=== PATIENT | male | born 1945 | race Caucasian/White ===

== ENCOUNTER → 2017-11-27 | Outpatient (CLI) | payer OTHER ==
[~2017-11-27] MED LIST: ASPI325T45 PO; B-CO1CAP17 PO; BIOT7500 PEG; CYAN10005 PO; DILT-113 PO; GEMF600T3 PO; GLUCTAB18 PO; PIRO-104 PO; PYRI100T4 PO; TRAM-10 PO; VITACAP37 PO
== END | disposition home or self-care (01) ==
LOC: C.CTS 14:29
PROVIDERS: ATTEND Orthopaedic Surgery
DX: M19.011 Primary osteoarthritis, right shoulder (principal)

== ENCOUNTER 2017-12-28 08:40 | Inpatient (IN) | payer OTHER ==
[2017-11-27 13:03] VITALS: BMI 32.0
--- NOTE | 2017-11-27 13:42 | PAT Medication Instructions ---
Service Date Nov 27, 2017. Current Home Medication List Aspirin (Aspirin), 325 MG PO QAM Biotin (Biotin), 1 TAB PEG QAM Cyanocobalamin (Vitamin B-12), 1,000 MCG PO QAM Diltiazem Hcl Ext Rel (Tiazac), 180 MG PO QAM Gemfibrozil (Lopid), 1 TAB PO BID Glucosamine-Chondroitin (Osteo Bi-Flex Regular Str), 1 TAB PO BID Piroxicam (Piroxicam), 1 CAP PO QPM Pyridoxine (Vitamin B6), 100-300 MG PO QAM Tramadol (Ultram), 1 TAB PO TID PRN for Pain or Fever Vitamin B Cmplx/Vitc/Folic Ac (Nephrocaps), 1 CAP PO QAM Vitamin E (E-400), 1 CAP PO QAM Medication Instructions For Your Scheduled Surgery - Check with surgeon and prescribing physician for instructions: Aspirin (Aspirin), 325 MG PO QAM Piroxicam (Piroxicam), 1 CAP PO QPM - Hold the following medications 2 weeks prior to surgery: Vitamin E (E-400), 1 CAP PO QAM Glucosamine-Chondroitin (Osteo Bi-Flex Regular Str), 1 TAB PO BID - Hold the following medications 24 hours prior to surgery: Gemfibrozil (Lopid), 1 TAB PO BID - Hold the following medications the morning of surgery: Biotin (Biotin), 1 TAB PEG QAM Cyanocobalamin (Vitamin B-12), 1,000 MCG PO QAM Pyridoxine (Vitamin B6), 100-300 MG PO QAM Vitamin B Cmplx/Vitc/Folic Ac (Nephrocaps), 1 CAP PO QAM - Take the following medications the morning of surgery with a sip of water: Tramadol (Ultram), 1 TAB PO TID PRN for Pain or Fever (okay to take up to 4 hours prior to surgery if needed) Diltiazem Hcl Ext Rel (Tiazac), 180 MG PO QAM - Take the following medications as scheduled the night before surgery: Tramadol (Ultram), 1 TAB PO TID PRN for Pain or Fever (if needed) If you have any questions please call us at [phone] or [phone] or [phone]
--- NOTE | 2017-11-27 14:26 | DIAGNOSTIC IMAGING REPORT ---
CHEST 2 VIEWS ROUTINE CLINICAL HISTORY: Preoperative evaluation. COMPARISON STUDY: No previous studies for comparison. FINDINGS: Lung volumes are normal. There is no pneumothorax or pleural effusion. No consolidation is identified and there is no evidence for pulmonary edema. Cardiac size is within normal limits. IMPRESSION: No acute cardiopulmonary findings. Electronically signed by: Kip López M.D. 11/27/2017 2:25 PM Dictated Date/Time: 11/27/2017 2:23 PM
[2017-11-27 14:33] LABS: BASO % 0.3 %; BASO ABS # 0.02 K/uL (0-0.2); EOS ABS # 0.21 K/uL (0-0.5); HEMATOCRIT 45.3 % (42-52); HEMOGLOBIN 16.6 g/dL (14.0-18.0); IG# 0.01 K/uL (0.00-0.02); LYMPH ABS # 2.11 K/uL (1.2-3.4); MEAN CORPUSCULAR HEMOGLOBIN 30.8 pg (25-34); MEAN CORPUSCULAR HGB CONC 36.6 g/dl (32-36); MEAN PLATELET VOLUME 8.5 fL (7.4-10.4); MONO ABS # 0.49 K/uL (0.11-0.59); NEUT % 59.6 %; NEUT ABS # 4.19 K/uL (1.4-6.5); PLATELET COUNT 199 K/uL (130-400); RED CELL DISTRIBUTION WIDTH CV 12.4 % (11.5-14.5); RED CELL DISTRIBUTION WIDTH SD 37.6 fL (36.4-46.3); WHITE BLOOD COUNT 7.03 K/uL (4.8-10.8)
[2017-11-27 14:42] LABS: PTT PATIENT 24.1 SECONDS (21.0-31.0)
[2017-11-27 16:05] LABS: CREATININE 0.97 mg/dl (0.60-1.40)
--- NOTE | 2017-12-27 16:08 | HISTORY & PHYSICAL EXAMINATION ---
DATE OF ADMISSION: 12/28/2017 PREOPERATIVE DIAGNOSIS: Advanced osteoarthritis of the right shoulder. 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 He has been dealing with right shoulder pain for the last 6-7 years. X-rays and clinical examination were diagnostic for primary osteoarthritis of his shoulders. After failing extensive conservative treatment including injections, he elected to proceed with a right total shoulder arthroplasty. PAST MEDICAL HISTORY: Significant for hypertension, osteoarthritis, and GERD. MEDICATIONS: Include diltiazem, gemfibrozil, piroxicam, tramadol, aspirin, and multiple vitamins and minerals. ALLERGIES: None. PAST SURGICAL HISTORY: Denies. SOCIAL HISTORY: He has about 3 drinks per week and does not smoke. He remains active. FAMILY HISTORY: Significant for heart disease, diabetes and colon cancer. REVIEW OF SYSTEMS: He complains of right shoulder pain. All other pertinent review of systems is negative. PHYSICAL EXAMINATION: GENERAL: He is awake, alert and oriented x3. He is in no apparent distress. He is very pleasant. HEENT: Pupils equal, round, reactive to light. Extraocular motion is intact. Oral mucosa pink, moist. HEART: Regular rate per radial pulse. LUNGS: Becca symmetrically bilaterally with no audible breath sounds. ABDOMEN: Soft, nontender, nondistended. MUSCULOSKELETAL: On physical examination of the shoulder, he has decreased active range of motion with only 100 degrees of forward elevation, 100 degrees of abduction. He has 5/5 motion to full can test and external rotation. Negative bear hug and belly press test. Significant tenderness to palpation over the anterior glenohumeral joint line. No subacromial and no AC joint tenderness. IMAGING DATA: X-rays of the shoulder do show advanced osteoarthritis with inferior osteophyte formation, complete joint space collapse and wkbf-os-[id number] articulation. IMPRESSION: Advanced osteoarthritis of the right shoulder. PLAN: We will proceed with a Biomet comprehensive right total shoulder arthroplasty. Postoperatively, he will be placed in an arm sling and kept overnight for postoperative medical management.
[~2017-12-28] VITALS: Ht 172.7 cm; Wt 94.9 kg
[2017-12-28] VITALS (7 sets, daily range): BP systolic 127–177; BP diastolic 70–111; PULSE 66–76; TEMP 36.3–36.5; O2SAT 92–96; Ht 172.7 cm; Wt 94.9 kg
[2017-12-28] MEDS: TRANEXAMIC ACID INJ 1,000 MG x 2 Bags IV SCH ×4 (06:30→09:51)
--- NOTE | 2017-12-28 08:37 | History & Physical Bridge Note ---
H&P Re-Evaluation Bridge Note: I have examined the patient, reviewed the History & Physical and in the interval since the performance of the History & Physical I have noted the following changes of clinical significance: No changes noted
[~2017-12-28 08:40] MED LIST changes: +ACETAMINOPHEN 500 MG TAB PO SCH; +BUPIVACAINE 0.25% 30 ML VIAL ONE; +CEFAZOLIN 2000MG IV PUSH 15 ML IV SCH; +DEXAMETHASONE SOD INJ 4 MG/ML VIAL ONE; +EpINEphrine INJ 1MG/ML AMP 1 MG/ML AMP ONE; +FAMOTIDINE 20 MG TAB PO SCH; +GABAPENTIN 300 MG CAP PO SCH; +LACTATED RINGER'S 1000ML 1,000 ML IV SCH; +LACTATED RINGER'S 1000ML IV SCH; +ROPIVACAINE 0.5% 5 MG/ML 30 ML VIAL ONE; +ROPIVACAINE 5MG/ML 30 ML 150 MG, BUPIVACAINE 0.5% MPF INJ 30 ML, EpINEphrine HCL INJ 0.... INFIL SCH
[2017-12-28] MEDS ORDERED: ONDANSETRON INJ 2 MG/ML 2 ML VIAL IV PRN ×2 (09:00→12:00)
[2017-12-28] MEDS ORDERED: EpHEDrine SULFATE INJ 50 MG/ML AMP IV PRN (09:00)
[2017-12-28] MEDS ORDERED: ATROPINE SULFATE 0.1 MG/ML 5ML SYR IV PRN (09:00)
[2017-12-28] MEDS ORDERED: PROMETHAZINE HCL INJ 6.25 MG in SODIUM CHLORIDE 0.9% 50ML 50 ML IV PRN (09:00)
[2017-12-28] MEDS ORDERED: FENTANYL CITRATE INJ 50 MCG/1 ML 2 ML VIAL IV PRN (09:00)
[2017-12-28] MEDS ORDERED: ORTHO JOINT ANESTHETIC ONE (09:35)
[2017-12-28] MEDS ORDERED: BACITRACIN 50000 UNIT VIAL ONE (09:35)
[2017-12-28] MEDS ORDERED: ONDANSETRON INJ 2 MG/ML 2 ML VIAL ONE (09:39)
[2017-12-28] MEDS ORDERED: LIDOCAINE HCL 2% 2 ML VIAL (20MG/ML) ONE (09:39)
[2017-12-28] MEDS ORDERED: DEXAMETHASONE SOD INJ 4 MG/ML VIAL ONE (09:39)
[2017-12-28] MEDS ORDERED: NEOSTIGMINE METHYLSULFATE 5 MG/5 ML SYR ONE (09:39)
[2017-12-28] MEDS ORDERED: PROPOFOL IV EMULSION 10 MG/ML 20 ML VIAL IV ONE (09:39)
[2017-12-28] MEDS ORDERED: GLYCOPYRROLATE INJ 0.2 MG/ML VIAL ONE (09:39)
[2017-12-28] MEDS ORDERED: MIDAZOLAM HCL 1 MG/ML 2ML VIAL ONE ×2 (09:40)
[2017-12-28] MEDS ORDERED: FENTANYL CITRATE INJ 50 MCG/1 ML 2 ML VIAL ONE ×2 (09:40→10:48)
[2017-12-28] MEDS ORDERED: ROCURONIUM BROMIDE 10 MG/ML 5 ML VIAL IV ONE ×2 (10:58→11:38)
[2017-12-28] MEDS ORDERED: PHENYLEPHRINE HCL INJ 10 MG/ML VIAL ONE (11:39)
--- NOTE | 2017-12-28 11:52 | [facility] Post Operative Brief Note ---
Immediate Operative Summary Operative Date Dec 28, 2017. Pre-Operative Diagnosis Advanced Osteoarthritis Right Shoulder Post-Operative Diagnosis Advanced Osteoarthritis Right Shoulder Procedure(s) Performed Right Total Shoulder Arthroplasty Surgeon Dr. Bong Aponte Pen Or Pencil Assembly Machine Operator Surgeon(s) Wagner Silva PA-C Estimated Blood Loss 200ML Findings Consistent with Post-Op Diagnosis Specimens Permanent Solution: A.) Right Humeral Head Anesthesia Type General Regional Complication(s) none Disposition Disposition: Recovery Room / PACU
[2017-12-28] MEDS ORDERED: CEFAZOLIN IV 2,000 MG in DEXTROSE 5% 50ML 50 ML IV SCH (12:00)
[2017-12-28] MEDS ORDERED: MoRPHine SULFATE 2 MG/ML CARP IV PRN (12:00)
[2017-12-28] MEDS ORDERED: HYDROCODONE/ACETAMIN 5/325MG TAB PO PRN (12:00)
[2017-12-28] MEDS ORDERED: SOD PHOSPHATE/SOD BIPHOSPHATE ENEMA 132 ML BTL PR PRN (12:00)
[2017-12-28] MEDS ORDERED: NALOXONE HCL 0.4 MG/1 ML VIAL/CARP IV PRN (12:00)
[2017-12-28] MEDS ORDERED: BISACODYL 10 MG SUPP PR PRN (12:00)
[2017-12-28] MEDS ORDERED: METOCLOPRAMIDE HCL INJ 5 MG/ML 2 ML VIAL IV PRN (12:00)
[2017-12-28] MEDS ORDERED: MAGNESIUM HYDROXIDE SUSP 30 ML UDC PO PRN (12:00)
--- NOTE | 2017-12-28 12:42 | Anesthesiology Progress Note ---
Anesthesia Post Op Note Date & Time Dec 28, 2017 at 12:42 Vital Signs Pain Intensity: 0 Vital Signs Past 12 Hours Date Time Temp Pulse Resp B/P (MAP) Pulse Ox O2 Delivery O2 Flow Rate FiO2 12/28/17 12:26 68 20 145/78 96 12/28/17 12:26 67 20 12/28/17 12:21 71 19 12/28/17 12:21 70 19 139/69 96 12/28/17 12:16 75 20 140/74 94 12/28/17 12:16 74 20 12/28/17 12:14 125/74 12/28/17 12:11 36.6 73 16 125/74 98 Oxymask 10 12/28/17 09:30 73 18 177/111 95 Room Air Notes Mental Status: alert / awake / arousable, participated in evaluation Pt Amnestic to Procedure: Yes Nausea / Vomiting: adequately controlled Pain: adequately controlled Airway Patency, RR, SpO2: stable & adequate BP & HR: stable & adequate Hydration State: stable & adequate Anesthetic Complications: no major complications apparent
--- NOTE | 2017-12-28 12:42 | DIAGNOSTIC IMAGING REPORT ---
R SHOULDER MIN 2 VIEWS ROUTINE CLINICAL HISTORY: Post shoulder surgery COMPARISON: CT of the right shoulder November 27, 2017. FINDINGS: Alignment of the right shoulder arthroplasty is anatomic. There is no fracture or unexpected radiopaque foreign body. Drain is in place. Skin henrry are noted. IMPRESSION: Expected findings following right shoulder arthroplasty. Electronically signed by: Kip López M.D. 12/28/2017 12:41 PM Dictated Date/Time: 12/28/2017 12:40 PM
--- NOTE | 2017-12-28 12:49 | OPERATIVE REPORT ---
DATE OF OPERATION: 12/28/2017 PREOPERATIVE DIAGNOSIS: Primary osteoarthritis of the right shoulder. POSTOPERATIVE DIAGNOSIS: Same. PROCEDURE: Right total shoulder arthroplasty. SURGEON: Dr. Bong Aponte. SENIOR INFORMATICA DEVELOPER: Wagner Silva PA-C, whose assistance was necessary for retraction and closure. ANESTHESIA: General with a right interscalene nerve block. COMPLICATIONS: None. CONDITION: Stable to PACU. IMPLANTS USED: I used a Biomet comprehensive right total shoulder arthroplasty system with a size medium glenoid, a size 13 mini pressfit humeral stem and a 46 x 18 mm eccentric humeral head. The glenoid was cemented with Palacos G cement. INDICATIONS: Joon is a pleasant 72-year-old male who presented to my office with chronic right shoulder pain. X-rays and clinical examination were diagnostic for primary osteoarthritis of the right shoulder. After failing conservative treatment, he elected to undergo a right total shoulder arthroplasty. DESCRIPTION OF PROCEDURE: On 12/28/2017, he arrived at [facility] for the above procedure. He was seen in the preoperative holding area and the operative extremity was identified and signed. He was given a preoperative antibiotic and a right interscalene nerve block. He was taken back to the operating room, laid on the table in supine position and put under general anesthesia. He was put into the beachchair position. The right shoulder was prepped and draped in sterile fashion. Time-out was done. The patient's operative extremity was properly identified. A deltopectoral approach was used. Dissection was taken down through the interval and the anterior shoulder was exposed. The long head of the biceps tendon was tenodesed to the upper border of the pec major. The subscapularis was then tenotomized off the lesser tuberosity with a centimeter of cuff tissue remaining. The proximal humerus was then exposed. Sequential reaming up to a size 13 reamer was done. Off the final reamer, a proximal humeral resection guide was placed and the proximal humerus was resected at 135 degrees of inclination and 30 degrees of retroversion. The head was removed and osteophytes were removed from the neck. The glenoid was then exposed. Time was spent doing an anterior and inferior capsular and labral release. The Biomet signature guide was then snapped on to the anterior aspect of the glenoid and a guide pin was placed in the total shoulder arthroplasty hole, set at 5 degrees of retroversion. A medium glenoid was reamed. The central boss was drilled. Three peripheral peg holes were drilled and the final glenoid was then cemented in place with Palacos-G cement. The proximal humerus was once again exposed. Sequential broaching up to size 13 broach was done. Off that final broach, a 46 x 18 mm eccentric head was trialled. The shoulder was brought through a full range of motion and felt to be stable. The proximal humerus was dislocated. The trials were removed. The final size 13 mini humeral stem was then impacted into place. A 46 x 18 mm eccentric humeral head was then impacted onto the humeral stem. The shoulder was reduced, brought through a full range of motion and felt to be stable. The subscapularis was then tenodesed back to the lesser tuberosity with transosseous FiberWire sutures and [id number] sutures. Two sutures were placed in the lateral rotator interval. Surrounding soft tissues were injected with 100 mL of an orthopedic pain control cocktail. The wound was irrigated with 3 liters normal saline solution with bacitracin. A single drain was placed. The axillary nerve was palpated. The skin was then closed with 2-0 Vicryl, 3-0 V-Loc suture and henrry. He was placed in a soft dressing and a regular arm sling. He was then extubated, transferred to a [facility] and taken to the postanesthesia care in stable condition. He tolerated the procedure well. I attest to the content of the Intraoperative Record and any orders documented therein. Any exceptions are noted below. BHARATI
[2017-12-28] MEDS: POTASSIUM CHLORIDE INJ 10 MEQ in SODIUM CHLORIDE 0.9% 1000ML 1,000 ML IV SCH (13:44)
[2017-12-28] MEDS ORDERED: IV FLUIDS COMPLETED PRN (14:00)
--- NOTE | 2017-12-28 16:26 | Discharge Instructions ---
Discharge Instructions Date of Service Dec 28, 2017. Admission Reason for Admission: Right Shoulder Degenerative Joint Disease Discharge Discharge Diagnosis / Problem: Right Total Shoulder Discharge Goals Goal(s): Decrease discomfort, Improve function Activity Recommendations Activity Limitations: as noted below . Instructions / Follow-Up Instructions / Follow-Up Activity and Therapy Recommendations: * Wear your sling for 3 weeks, unless otherwise instructed. You may remove your sling to shower and to dress, but otherwise, you should be in your sling at all times, including while sleeping * The shoulder replacement is very stable and you can use your hand while in the sling * Physical Therapy should start about 3-5 days from your day of surgery. Therapy will last about 8-12 weeks * You were shown a series of exercises in the hospital. Do these exercises daily including the exercises you were shown in physical therapy. Medications: * Narcotic You will likely be sent home from the hospital with a prescription for the narcotic pain medication that worked best throughout your stay. * Other medications may be prescribed for specific circumstances. If you have any questions, please call the office at . * Resume previous home medications unless otherwise instructed Showering: You may shower 5 days from the day of surgery. Let the soapy shower water run over the henrry. Do not scrub or soak the incision. Things To Watch For: * Drainage from the incision site that occurs more than one week after your surgery. * Increased redness at the incision site. * Fever above 102 degrees Fahrenheit. * Unusual chest pain or shortness of breath. * Call [facility] at with any of the above problems Follow-Up Visit: Follow-up with Dr. Aponte 2 weeks after your day of surgery. An appointment was probably scheduled when you signed-up for surgery in the office. If you have any questions call Office Instructions: More detailed instructions as well as Frequently Asked Questions were provided in a folder by our office when you signed-up for surgery. Please review these instructions when you get home. If you have any further questions or concerns, please feel free to call the office at [phone] Current Hospital Diet Patient's current hospital diet: Regular Diet Discharge Diet Recommended Diet: Regular Diet Procedures Procedures Performed: Right Total Shoulder Arthroplasty Pending Studies Studies pending at discharge: no Medical Emergencies . Who to Call and When: Medical Emergencies: If at any time you feel your situation is an emergency, please call 911 immediately. . Non-Emergent Contact Non-Emergency issues call your: Surgeon Call Non-Emergent contact if: wound has increased drainage, wound has increased redness . "Provider Documentation" section prepared by Bong Aponte. .
[2017-12-28] MEDS: CEFAZOLIN IV 2,000 MG in SYRINGE 0 ML IV SCH (16:31)
[2017-12-28] MEDS: KETOROLAC TROMETHAMINE 15 MG/ML VIAL IV. SCH ×2 (16:31→22:28)
[2017-12-28] MEDS ORDERED: SENNA 8.6 MG TAB PO SCH (21:00)
[2017-12-28] MEDS: GEMFIBROZIL 600 MG TAB PO SCH (21:15)
[2017-12-28] MEDS: DOCUSATE SODIUM 100 MG CAP PO SCH (21:15)
[2017-12-29] MEDS: POTASSIUM CHLORIDE INJ 10 MEQ in SODIUM CHLORIDE 0.9% 1000ML 1,000 ML IV SCH ×2 (00:03→10:06)
[2017-12-29] MEDS: CEFAZOLIN IV 2,000 MG in SYRINGE 0 ML IV SCH (00:03)
[2017-12-29] MEDS: KETOROLAC TROMETHAMINE 15 MG/ML VIAL IV. SCH ×2 (03:36→10:30)
[2017-12-29 03:50] VITALS: BP 134/78; PULSE 72; TEMP 37.1; O2SAT 93
[2017-12-29 06:19] LABS: HEMOGLOBIN 13.6 g/dL (14.0-18.0); MEAN CELL VOLUME 83.3 fL (80-100); MEAN CORPUSCULAR HEMOGLOBIN 30.6 pg (25-34); MEAN CORPUSCULAR HGB CONC 36.8 g/dl (32-36); MEAN PLATELET VOLUME 8.2 fL (7.4-10.4); PLATELET COUNT 162 K/uL (130-400); RED CELL DISTRIBUTION WIDTH CV 12.6 % (11.5-14.5); RED CELL DISTRIBUTION WIDTH SD 38.1 fL (36.4-46.3); WHITE BLOOD COUNT 12.52 K/uL (4.8-10.8)
[2017-12-29 06:41] LABS: CREATININE 0.93 mg/dl (0.60-1.40)
[2017-12-29 06:42] LABS: CALCIUM 7.5 mg/dl (8.5-10.1); POTASSIUM 3.8 mmol/L (3.5-5.1)
[2017-12-29] MEDS: GEMFIBROZIL 600 MG TAB PO SCH (07:25)
[2017-12-29 07:40] VITALS: BP 156/77; PULSE 68; TEMP 36.7; O2SAT 94
[2017-12-29 08:00] VITALS: BP 156/77; PULSE 68; TEMP 36.7; O2SAT 94
--- NOTE | 2017-12-29 08:00 | PROGRESS NOTE ---
DATE: 12/29/2017 CHIEF COMPLAINT: Status post right total shoulder arthroplasty postop day #1. PROGRESS: Joon was seen and examined at bedside today. Overall, he is doing very well. He has little to no pain in the shoulder. He has no complaints. PHYSICAL EXAMINATION: RIGHT SHOULDER: The dressing is clean and dry and the drain is to suction. He is wearing a sling as instructed. His radial, median and ulnar nerves are checked and intact at his wrist. His axillary nerve was not definitively checked yet. LABORATORY DATA: He has an H&H today of 13.6 and 37.0. His glucose is 129. His vital signs are all stable on room air and he is voiding on his own. X-rays postoperatively of the right shoulder showed the prosthesis to be in anatomic alignment without any evidence of fracture, dislocation or loosening. IMPRESSION: Status post right total shoulder arthroplasty postop day #1. PLAN: At this point, he is doing well. He has very little pain in his shoulder. He takes tramadol for pain at home and he will continue on that postoperatively. He is scheduled with physical therapy this week. He will be seen by therapy in the hospital this morning and the nursing staff can change the dressing, pull the drain and will discharge him to home.
[2017-12-29] MEDS: DOCUSATE SODIUM 100 MG CAP PO SCH (08:39)
[2017-12-29] MEDS ORDERED: DILTIAZEM HCL (TIAzac) 180 MG CAPCR PO SCH (09:00)
[2017-12-29] MEDS ORDERED: MULTIVITAMIN TAB PO SCH (09:00)
[2017-12-29] MEDS ORDERED: ASPIRIN 325 MG ECTAB PO SCH (09:00)
--- NOTE | 2018-01-01 12:23 | DISCHARGE SUMMARY ---
DISCHARGE DIAGNOSIS: Primary osteoarthritis of the right shoulder. PROCEDURE: Right total shoulder arthroplasty on 12/28/[address] Bong Aponte. DISCHARGE INSTRUCTIONS: 1. Aspirin 325 mg daily. 2. Diltiazem 180 mg daily. 3. Lopid 600 mg twice a day. 4. Piroxicam 20 mg tablet daily. 5. Ultram 3 times a day as needed. 6. Continue all other vitamins and minerals. 7. Right arm sling for 3 weeks. 8. Follow up with Dr. Aponte in 2 weeks. 9. Call the office of Dr. Aponte with any questions or concerns. HOSPITAL COURSE: Joon is a pleasant 72-year-old male who presented to my office with complaints of chronic right shoulder pain. X-rays and clinical examination were diagnostic for primary osteoarthritis of the right shoulder. After failing conservative treatment, he elected to undergo a right total shoulder arthroplasty. On December 28, 1017 he arrived at [facility] and underwent a right shoulder replacement without complication. He had a general anesthetic and a right interscalene nerve block. Postoperatively, he was put in an arm sling and discharged to general orthopedic floor. His hospital course was uneventful. On postop day #1, his H&H was stable at 13.6 and 37.0. He was able to participate well with physical therapy, doing hand, wrist, elbow and pendulum exercises. The nursing staff changed the dressing, pulled the drain. He was subsequently discharged to home with the above instructions.
== END 2017-12-29 10:50 | disposition home or self-care (01) | DRG 483 ==
LOC: C.ACU 08:40 → OBSVTOIN 09:00 → C.3E 09:00 → ENRESERV 12:30
PROVIDERS: ADMIT Orthopaedic Surgery; ATTEND Orthopaedic Surgery
PROC: 0RRJ0JZ Replacement of Right Shoulder Joint with Synthetic Substitute, Open Approach (ICD-10-PCS; principal; 2017-12-28 11:35)
DX: M19.011 Primary osteoarthritis, right shoulder (principal); I11.9 Hypertensive heart disease without heart failure; I25.10 Atherosclerotic heart disease of native coronary artery without angina pectoris; E66.9 Obesity, unspecified; Z79.899 Other long term (current) drug therapy; Z79.82 Long term (current) use of aspirin; Z79.1 Long term (current) use of non-steroidal anti-inflammatories (NSAID); Z68.31 Body mass index [BMI] 31.0-31.9, adult; Z88.5 Allergy status to narcotic agent; Z82.49 Family history of ischemic heart disease and other diseases of the circulatory system; Z83.3 Family history of diabetes mellitus; Z80.0 Family history of malignant neoplasm of digestive organs

== ENCOUNTER 2022-11-27 09:04 | Observation (INO) ==
--- NOTE | 2022-10-24 11:20 | PAT Medication Instructions ---
Medication Instructions Date of Service October 24, 2022 Home Medications aspirin 81 mg tablet,delayed release (Adult Low Dose Aspirin) 81 mg PO QAM atorvastatin 40 mg tablet 40 mg PO QAM furosemide 20 mg tablet 20 mg PO Q OTHER DAY hydrochlorothiazide 25 mg tablet 25 mg PO DAILY lisinopril 40 mg tablet 40 mg PO DAILY metoprolol tartrate 50 mg tablet 50 mg PO BID glucosamine 750 cm-xpfdtouknep-him no1 644 mg-C 30 mg-jostin 1 mg tablet (Osteo Bi-Flex Triple Strength) 1 tab PO QAM multivitamin-ferrous fumarate-folic acid 18 mg-400 mcg tablet (Centrum) 1 tab PO QAM vit C 250 mg-vit E 90 mg-zinc 40 mg-copper 1 [id number] capsule (PreserVision AREDS-2) 1 tab PO BID STOP taking 2 weeks before surgery glucosamine 750 uk-cmohwoozyai-vwg no1 644 mg-C 30 mg-jostin 1 mg tablet (Osteo Bi-Flex Triple Strength) 1 tab PO QAM multivitamin-ferrous fumarate-folic acid 18 mg-400 mcg tablet (Centrum) 1 tab PO QAM vit C 250 mg-vit E 90 mg-zinc 40 mg-copper 1 cw-cccyrh-vtvalt capsule (PreserVision AREDS-2) 1 tab PO BID DO NOT take the morning of surgery furosemide 20 mg tablet 20 mg PO Q OTHER DAY hydrochlorothiazide 25 mg tablet 25 mg PO DAILY lisinopril 40 mg tablet 40 mg PO DAILY Take morning of surgery With a small sip of water, OTHERWISE NOTHING TO EAT OR DRINK AFTER MIDNIGHT: aspirin 81 mg tablet,delayed release (Adult Low Dose Aspirin) 81 mg PO QAM (unless directed otherwise by surgeon) atorvastatin 40 mg tablet 40 mg PO QAM metoprolol tartrate 50 mg tablet 50 mg PO BID Take evening before surgery metoprolol tartrate 50 mg tablet 50 mg PO BID Other Notes If you have any questions please call us at [phone] or [phone] or [phone] or [phone]
--- NOTE | 2022-10-30 12:52 | Anesthesiology Consultation ---
Date of Service October 30, 2022 Assessment & Plan (1) Encounter for pre-operative examination: - COVID screening: Per assessment on 10/30: No known COVID-19 positive contacts or current COVID-19 related symptoms. Travel screen negative. Patient vaccinated. At surgeon discretion if preop Covid testing being done. - S/P Right TSA (12/28/17): Grade view 1, MAC#3, ETT 7.5 + PNB at [facility]. No issues noted per post-op anesthesia progress note. - Outpatient joint assessment: Pt currently scheduled for inpatient pathway. If surgeon requests review for outpatient joint pathway, patient is not recommended candidate for outpatient joint program from anesthesia standpoint. - Pt scheduled to see cardiology prior to upcoming surgery. Awaiting cardiology office visit (appt 11/03, Dr. Mojica). Chart Review Chart Review: Patient seen in Pre Admission Testing Teaching & Discussion Pre-Anesthesia Teaching/Discussion Notes: Instructed NPO after midnight before surgery,except medications with 15 cc of water. Medication instructions prov ided according to the PAT guidelines. History Surgery Operation Date: 11/27/22 08:50 Proposed Procedures p Right Total Knee Arthroplasty - Bong Aponte, Height/Weight Height: 5 ft 8 in Weight: 98.5 kg Allergies Allergy/AdvReac Type Severity Reaction Status Date / Time oxycodone AdvReac Unknown N/V Verified 10/30/22 10:58 Medications Home Medications Medication Instructions Recorded Confirmed Last Taken aspirin 81 mg tablet,delayed 81 mg PO QAM 09/20/21 10/23/22 Unknown release (Adult Low Dose Aspirin) atorvastatin 40 mg tablet 40 mg PO QAM 09/20/21 10/23/22 Unknown furosemide 20 mg tablet 20 mg PO Q OTHER DAY 09/20/21 10/23/22 Unknown hydrochlorothiazide 25 mg tablet 25 mg PO DAILY 09/20/21 10/23/22 Unknown lisinopril 40 mg tablet 40 mg PO DAILY 09/20/21 10/23/22 Unknown metoprolol tartrate 50 mg tablet 50 mg PO BID 09/20/21 10/23/22 Unknown glucosamine 750 xh-sjmmaqtgrvg-wtp 1 tab PO QAM 10/23/22 10/23/22 Unknown no1 644 mg-C 30 mg-jostin 1 mg tablet (Osteo Bi-Flex Triple Strength) multivitamin-ferrous 1 tab PO QAM 10/23/22 10/23/22 Unknown fumarate-folic acid 18 mg-400 mcg tablet (Centrum) vit C 250 mg-vit E 90 mg-zinc 40 1 tab PO BID 10/23/22 10/23/22 Unknown mg-copper 1 eo-asexcq-wexerl capsule (PreserVision AREDS-2) Past Medical History Medical History CAD (coronary artery disease) CABG x4 (2019) Follows with Dr. Mojica/Nohelia History of COVID-19 05/2022- sinus congestion, resolved Hx of renal calculi Hyperlipidemia Hypertension Right knee DJD Exercise / Class Metabolic Activity II 4-5 Yardwork/Stairs/Walk up hill (one FS (no CP, no SOB)) Past Surgical History Surgical History Hx of blepharoplasty R/L Hx of cardiac catheterization 12/2019> subsequent CABG done 02/2020 Hx of cataract extraction R/L Hx of colonoscopy Hx of four vessel coronary artery bypass graft 02/2020 Hx of shoulder replacement Right TSA (12/28/17): Grade view 1, MAC#3, ETT 7.5 + PNB at [facility]. No issues noted per post-op anesthesia progress note. Past Anesthesia History No Hx of Anesthesia Complications and No Family Hx of Anesthesia Complications History of PONV No Hx of PONV and Hx of Motion Sickness (Remote hx) Social History Smoking Status: Never smoker Do You Dip or Chew Tobacco: No Hx Alcohol Use: Yes alcohol intake frequency: a few times a week Hx Substance Use: No substance use type: does not use Review of Systems Patient denies chest pain, shortness of breath, dyspnea on exertion, fever, chills, cough, wheezing, palpitations. Physical Exam Vital Signs VITALS BP 179/64 P 62 TEMP 98.6 SP02 97%RA RESP 16 PHYSICAL Full cervical extension range of motion. Full TMJ range of motion. TMD 4 finger breaths Mallampati Score 3 Dentition: intact Lungs: clear throughout to auscultation Cardiac: regular rate and rhythm with occasional extra beat, no murmurs noted Spine: normal Carotid arteries: negative bruit Extremities: no edema Lab Results Anesthesia Preop Results Results Anesthesia Widget: WBC 8.77 K/ul (4.8-10.8) 10/30/22 Hgb 17.9 g/dl (14.0-18.0) 10/30/22 Hct 51.9 % (40.1-51.0) H 10/30/22 Plt 172 K/uL (130-400) 10/30/22 Na 141 mmol/L (136-145) 10/30/22 K 4.3 mmol/L (3.5-5.1) 10/30/22 Cl 106 mmol/L (98-107) 10/30/22 CO2 29 mmol/L (21-32) 10/30/22 BUN 24 mg/dl (6-23) H 10/30/22 Creat 1.22 mg/dl (0.6-1.4) 10/30/22 Glucose Level 108 mg/dl (70-99(Fasting)) H 10/30/22 PT 10.3 Seconds (9.0-12.0) 10/30/22 PTT 25.0 Seconds (21.0-31.0) 10/30/22 INR 1.0 (0.9-1.1) 10/30/22 Blood Type A Positive 10/30/22 Antibody Screen NEGATIVE 10/30/22 Testing Electrocardiogram Date: 10/30/22 Sinus rhythm with PACs at 74 bpm. Low voltage QRS. Chest X-Ray Date: 10/30/22 FINDINGS: Median sternotomy wires are unchanged. Right shoulder arthroplasty is seen. Calcified aortic knob is seen. The lungs are clear. No evidence of pleural effusion or pneumothorax. IMPRESSION: No acute chest disease. Echocardiogram Date: 06/26/22 EF 55%. Mild LAE. Mild aortic valve calcification. Mild WI. Grade 1 diastolic dysfunction. Stress Test Date: 10/03/19 Type: nuclear Anterior and anterior apical hypokinesis with a calculated LVEF 48%. No regadenosoninduced ischemic EKG changes. Subsequent cardiac cath > CABG performed. Cardiac Catheterization Date: 12/30/19 Severe CAD with mild LV dysfunction. LVEF 50% by LV Gram. Surgery consult for coronary revascularization recommended > subsequent CABGx4 (02/2020) COVID-19 Risk Screen Screening Information COVID-19 Screen Date: 10/30/22 Exposure 21 Days Family/Household +COVID Last 21 Days: No Exposure 10 Days Any COVID Exposure Last 10 Days: No Symptoms Last 10 Days Experienced COVID Sx Last 10 Days: No + COVID 0-90 Days COVID + in Last 0-90 Days: No
--- NOTE | 2022-11-27 06:31 | History & Physical Report ---
Date of Service November 27, 2022 Assessment & Plan (1) Right knee DJD: We will proceed with a right total knee arthroplasty. Postoperatively he will be started on aspirin for DVT prophylaxis and kept overnight in the hospital for postoperative medical management. He plans to use energy physical therapy upon discharge. History of Present Illness Chief Complaint: Osteoarthritis of the right knee. Primary Care Provider: Deven Dupree is a pleasant 76-year-old male who is well known to me. I did a shoulder replacement on him in the past and that did well. I have been treating him for osteoarthritis of both knees. I have given him injection. Unfortunately, the injections are no longer helping. He is really struggling with his knees. His right is worse than his left. After failing conservative treatment, he has elected to proceed with a right total knee arthroplasty. . Allergies Allergy/AdvReac Type Severity Reaction Status Date / Time oxycodone AdvReac Unknown N/V Verified 10/30/22 10:58 Home Medications Medication Instructions Recorded Confirmed Type aspirin 81 mg tablet,delayed 81 mg PO QAM 09/20/21 10/23/22 History release (Adult Low Dose Aspirin) atorvastatin 40 mg tablet 40 mg PO QAM 09/20/21 10/23/22 History furosemide 20 mg tablet 20 mg PO Q OTHER DAY 09/20/21 10/23/22 History hydrochlorothiazide 25 mg tablet 25 mg PO DAILY 09/20/21 10/23/22 History lisinopril 40 mg tablet 40 mg PO DAILY 09/20/21 10/23/22 History metoprolol tartrate 50 mg tablet 50 mg PO BID 09/20/21 10/23/22 History glucosamine 750 jw-weauxdxuddl-lur 1 tab PO QAM 10/23/22 10/23/22 History no1 644 mg-C 30 mg-jostin 1 mg tablet (Osteo Bi-Flex Triple Strength) multivitamin-ferrous 1 tab PO QAM 10/23/22 10/23/22 History fumarate-folic acid 18 mg-400 mcg tablet (Centrum) vit C 250 mg-vit E 90 mg-zinc 40 1 tab PO BID 10/23/22 10/23/22 History mg-copper 1 sa-qcybaq-gqgedr capsule (PreserVision AREDS-2) Wheeled Walker #1 ea 10/31/22 Rx Wheeled Walker #1 ea 11/07/22 Rx Past Med/Surg History Medical History CAD (coronary artery disease) CABG x4 (2019) Follows with Dr. Mojica/Nohelia History of COVID-19 05/2022- sinus congestion, resolved Hx of renal calculi Hyperlipidemia Hypertension Right knee DJD Surgical History Hx of blepharoplasty R/L Hx of cardiac catheterization 12/2019> subsequent CABG done 02/2020 Hx of cataract extraction R/L Hx of colonoscopy Hx of four vessel coronary artery bypass graft 02/2020 Hx of shoulder replacement Right TSA (12/28/17): Grade view 1, MAC#3, ETT 7.5 + PNB at [facility]. No issues noted per post-op anesthesia progress note. Social History Smoking Status: Never smoker Second Hand Exposure: No; Hx Alcohol Use: Yes Hx Substance Use: No Preferred Language: Tajik Communication Ability: Effective Mannequin Molder Required: No Beliefs That Will Affect Care: None Current Living Situation: Spouse Feels Safe at Home: Yes Assistive Devices: Hearing Aid - Bilateral Review of Systems All systems reviewed & are unremarkable except as noted in HPI & below. Physical Exam On physical examination the right knee, he has good range of motion of 0 to 120 degrees. No instability. He has pain over the distal medial femoral condyle and over the medial joint line.. Constitutional WD/WN, vitals as above Eyes PERRL, conjunctivae normal, anicteric sclerae ENMT external ear and nose normal, oropharynx normal Neck trachea midline, no thyromegaly Respiratory normal respiratory effort, lungs clear to auscultation Cardiovascular RRR, no murmur, no edema Gastrointestinal (Abdomen) normal bowel sounds, soft, nontender, no hepatosplenomegaly Skin no rashes, warm and dry Psychiatric A+Ox3, euthymic affect Results & Data Results & Data Laboratory Results . Diagnostic Findings X-rays of the right knee show signs of osteoarthritis with joint space salty rowing, osteophyte formation, and rlld-if-ybfi reticulation. PG Care Time/CCT Total # of Minutes Spent Total Time Spent with Patient: Total time spent is greater than 50% in coordination of care (as documented) at patient's floor/unit and/or counseling patient: Coding Level of Care Code None Diagnoses Right knee DJD M17.11
[~2022-11-27 09:04] MED LIST changes: -ASPI325T45 PO; -B-CO1CAP17 PO; -BIOT7500 PEG; -BUPIVACAINE 0.25% 30 ML VIAL ONE; -CEFAZOLIN 2000MG IV PUSH 15 ML IV SCH; -CYAN10005 PO; -DEXAMETHASONE SOD INJ 4 MG/ML VIAL ONE; -DILT-113 PO; -EpINEphrine INJ 1MG/ML AMP 1 MG/ML AMP ONE; -GEMF600T3 PO; -GLUCTAB18 PO; -LACTATED RINGER'S 1000ML 1,000 ML IV SCH; -LACTATED RINGER'S 1000ML IV SCH; +LR 500ML BOLUS, THEN 15ML/HR IV SCH; +LR 60ML/HR IV SCH; +ORTHO JOINT MIX INFIL SCH; -PIRO-104 PO; -PYRI100T4 PO; -ROPIVACAINE 5MG/ML 30 ML 150 MG, BUPIVACAINE 0.5% MPF INJ 30 ML, EpINEphrine HCL INJ 0.... INFIL SCH; -TRAM-10 PO; +TRANEXAMIC ACID 1,000 MG **IV Intra-op IV SCH; +TRANEXAMIC ACID 1,000 MG **IV Pre-op IV SCH; -VITACAP37 PO; +ceFAZolin 2000MG 2,000 MG/15 ML SYR IV SCH; +dexAMETHasone 4 MG TAB PO SCH
[2022-11-27] MEDS ORDERED: MIDAZOLAM HCL 1 MG/ML 2ML VIAL ONE (10:54)
[2022-11-27] MEDS ORDERED: fentaNYL citrate 100 MCG/2 ML VIAL ONE (10:55)
[2022-11-27] MEDS ORDERED: ORTHO JOINT ANESTHETIC ONE (11:03)
[2022-11-27] MEDS ORDERED: ONDANSETRON INJ 2 MG/ML 2 ML VIAL IV PRN ×2 (11:24→15:19)
[2022-11-27] MEDS ORDERED: HYDROmorphone INJ 1 MG/ML SYRINGE IV PRN (11:24)
[2022-11-27] MEDS ORDERED: ATROPINE SULFATE 0.1 MG/ML 10ML SYR IV PRN (11:24)
[2022-11-27] MEDS ORDERED: KETOROLAC 30 MG/ML VIAL IV PRN (11:24)
[2022-11-27] MEDS ORDERED: ePHEDrine sulfate 50 MG/ML AMP IV PRN (11:24)
[2022-11-27] MEDS ORDERED: LIDOCAINE 2% MPF LOCAL 5 ML VIAL INFIL ONE (13:38)
[2022-11-27] MEDS ORDERED: PROPOFOL IV EMULSION 10 MG/ML 20 ML VIAL IV ONE (13:38)
--- NOTE | 2022-11-27 14:08 | XRay Report ---
XR knee RT 1 or 2V routine CLINICAL HISTORY: Surgical Post Op TECHNIQUE: 2 views of the right knee were obtained. Comparison: Comparison is made to the radiographs 08/30/2022 FINDINGS: Patient is status post total knee arthroplasty with expected postsurgical changes including soft tiss ue swelling and subcutaneous emphysema. No periarticular lucency or hardware fracture is seen. IMPRESSION: Expected postoperative appearance status post placement of total knee arthroplasty. ACT 112: Negative or not required by law. Electronically signed by: Randy Shankar M.D. 11/27/2022 2:07 PM
--- NOTE | 2022-11-27 14:21 | Operative Report ---
PG Post Operative Report Pre & Post Diagnosis Operation Date: 11/27/22 11:40 Pre-Op Diagnosis: Degenerative Joint Disease Right Knee Post-Op Diagnosis: Degenerative Joint Disease Right Knee I identified the patient and participated in the time-out.: Yes Procedure Operation Date: 11/27/22 11:40 Actual Procedures p Right Total Knee Arthroplasty(Right) - Bong Aponte DO Surgeon Bong Aponte DO Loan Representative Bong Diaz PA-C Estimated Blood Loss 30 Findings Consistent with Post-Op Diagnosis Specimens Right femoral and tibial bone Description of Procedure Implants used: I used a Sara Persona total knee arthroplasty system with a size 10 standard femur, F tibia, 28 oval patella, and a size 11 medial congruent polyethylene bearing. All components were cemented in place with Biomet cement. Joon arrived [facility] for the above procedure. He was seen in the preoperative holding area and the operative extremity was identified and signed. He was given a preoperative antibiotic, TXA, a spinal anesthetic and an adductor nerve block. He was taken back to the operating room and laid on the table in supine position. He was given basic sedation. The operative knee was then prepped and draped in sterile fashion. A timeout was done, and the patient and the operative extremity was properly identified. A midline incision was made directly over the patella. Dissection was taken down to the extensor mechanism. A midvastus arthrotomy was used. The medial retinaculum was released and the fat pad was mostly excised. The knee was flexed and the ACL, PCL, and meniscus were removed. A drill was sent down the center of the femoral canal followed by an intramedullary jacob. Off that jacob a distal femoral cutting block was placed. 9 mm was resected off the distal femur at 5 of valgus. A posterior referencing AP sizing guide was then placed on the distal femur. The femur measured to be a size 10. 2 drill holes were placed in 3 of external rotation. A 4-in-1 cutting block was then impacted into place. Anterior, posterior, and chamfer cuts were then made. The proximal tibia was then exposed. An external tibial alignment guide was placed. A tibial cut guide was then anchored in place and the proximal tibia was then resected. The posterior aspect of the knee was then opened up and any additional meniscus fragments and osteophytes were removed. The tibia measured to be a size F. The tibial plate was then placed in the appropriate rotation and the tibia was drilled and punched. Trial components were then placed. I used a size 11 medial congruent polyethylene insert. The knee was brought through a full range of motion and felt to be stable. The peg holes for the femoral component were then drilled. The patella was then everted and 9 mm was resected off the posterior aspect of the patella. The patella measured to be a size 28 oval. 3 peg holes were then drilled. A trial patella was placed. The knee was once again brought through a full range of motion and felt to be stable. Trial components were then removed. The surrounding soft tissues were injected with 100 cc of an orthopedic pain control cocktail. All components were then cemented into place with Biomet cement. The final polyethylene insert was then snapped into place. Once cement was dry the tourniquet was deflated. Hemostasis was obtained. A dilute betadyne lavage was then done for 3 minutes. The joint was then irrigated with normal saline solution. The midvastus arthro beto was then closed with #1 Vicryl suture. The skin was closed with 2-0 Vicryl, 3-0V lock suture, and henrry. A soft compressive dressing was placed. He was then transferred to a hospital bed and taken to the postanesthesia care unit in stable condition. He tolerated the procedure well. Bong Diaz PA-C, was present for the entire procedure. He was critical for patient positioning, prepping, draping, retraction exposure, wound closure and application of sterile dressing. I attest to the content of the Intraoperative Record and any orders documented therein. Any exceptions are noted below.
--- NOTE | 2022-11-27 14:29 | Anesthesiology Progress Note ---
Date of Service November 27, 2022 Anesthesia Post Procedure Vital Signs Vital Signs: Temp Pulse Pulse Resp BP Pulse Ox O2 Del Method 11/27/22 14:15 63 18 138/66 95 Room Air 11/27/22 14:05 36.3 C L 61 15 125/67 94 Room Air 11/27/22 13:55 63 12 119/69 96 Room Air 11/27/22 13:45 65 17 128/63 95 Oxymask 11/27/22 13:35 66 13 128/70 96 Oxymask 11/27/22 13:29 36.5 C 66 16 118/68 97 Oxymask 11/27/22 10:04 36.8 C 68 20 156/91 H 95 Room Air O2 Flow Rate 11/27/22 14:15 11/27/22 14:05 11/27/22 13:55 11/27/22 13:45 4 11/27/22 13:35 6 11/27/22 13:29 8 11/27/22 10:04 Transfer of Care Handoff Completed per policy Notes Mental Status: alert / awake / arousable Patient Amnestic to Procedure: Yes Nausea / Vomiting: adequately controlled Pain: adequately controlled Airway Patency, RR, SpO2: stable & adequate BP & HR: stable & adequate Hydration State: stable & adequate Neuraxial Anesthesia: was administered and sensory block is resolving Anesthetic Complications: no major complications apparent
[2022-11-27] MEDS ORDERED: MAGNESIUM HYDROXIDE SUSP 30 ML UDC PO PRN (15:19)
[2022-11-27] MEDS ORDERED: HYDROmorphone INJ 0.5 MG/0.5 ML SYR IV PRN (15:19)
[2022-11-27] MEDS ORDERED: NALOXONE HCL 0.4 MG/1 ML VIAL/CARP IV PRN (15:19)
[2022-11-27] MEDS ORDERED: METOCLOPRAMIDE HCL INJ 5 MG/ML 2 ML VIAL IV PRN (15:19)
[2022-11-27] MEDS ORDERED: bisacodyL 10 MG SUPP PR PRN (15:19)
[2022-11-27] MEDS ORDERED: oxyCODONE HCL IR 5 MG TAB (IMMEDIATE RELEASE) PO PRN (15:19)
[2022-11-27] MEDS ORDERED: SODIUM CHLORIDE 0.9% 1000ML 1,000 ML IV SCH (15:19)
[2022-11-27] MEDS: ACETAMINOPHEN 500 MG TAB PO SCH ×2 (15:57→20:50)
[2022-11-27] MEDS: KETOROLAC TROMETHAMINE 15 MG/ML VIAL IV SCH (15:57)
[2022-11-27] MEDS: ASPIRIN 81 MG ECTAB PO SCH (20:48)
[2022-11-27] MEDS: DOCUSATE SODIUM 100 MG CAP PO SCH (20:48)
[2022-11-27] MEDS: ceFAZolin 2000MG 2,000 MG/15 ML SYR IV SCH (20:48)
[2022-11-27] MEDS: METOPROLOL TARTRATE 50 MG TAB PO SCH (20:48)
[2022-11-27] MEDS ORDERED: SENNA 8.6 MG TAB PO SCH (21:00)
[2022-11-28] MEDS: KETOROLAC TROMETHAMINE 15 MG/ML VIAL IV SCH ×2 (01:36→06:09)
[2022-11-28] MEDS: ceFAZolin 2000MG 2,000 MG/15 ML SYR IV SCH (01:37)
[2022-11-28] MEDS: ACETAMINOPHEN 500 MG TAB PO SCH (06:09)
[2022-11-28] MEDS ORDERED: FUROSEMIDE 20 MG TAB PO SCH ×2 (07:00)
[2022-11-28] MEDS ORDERED: dexAMETHasone 4 MG TAB PO SCH (08:00)
[2022-11-28] MEDS: ASPIRIN 81 MG ECTAB PO SCH (08:12)
[2022-11-28] MEDS: DOCUSATE SODIUM 100 MG CAP PO SCH (08:12)
[2022-11-28] MEDS: METOPROLOL TARTRATE 50 MG TAB PO SCH (08:12)
[2022-11-28] MEDS ORDERED: MULTIVITAMIN TAB PO SCH (09:00)
[2022-11-28] MEDS ORDERED: lisinopril 40 MG TAB PO SCH (09:00)
[2022-11-28] MEDS ORDERED: hydroCHLOROthiazide 25 MG TAB PO SCH (09:00)
[2022-11-28] MEDS ORDERED: ATORVASTATIN 40 MG TAB PO SCH (09:00)
--- NOTE | 2022-11-28 09:29 | Orthopedic Progress Note ---
Date of Service November 28, 2022 Assessment & Plan (1) Status post right knee replacement: Overall he is doing very well. He is not having much pain in the right knee. He will be seen by physical therapy today for ambulation and range of motion exercises. He is on aspirin for DVT prophylaxis. He can be discharged home later today. He will follow-up with orthopedics in 2 weeks. Subjective Joon was seen and examined at bedside this morning. Overall is doing very well. He stayed in in a chair at bedside. His knee is flexed. He has been ambulating around the nurses station. He has no complaints.. Review of Systems All systems reviewed & are unremarkable except as noted in HPI & below. Physical Exam On physical examination of the right knee, the dressing is clean and dry. He has active dorsiflexion plantarflexion of his right ankle. Sensations intact throughout.. Results & Data Results & Data Laboratory Results . Diagnostic Findings Postoperative x-rays of the right knee show the prosthesis to be in anatomic alignment without any evidence of fracture, desiccation, or loosening. PG Care Time/CCT Total # of Minutes Spent Total Time Spent with Patient: Total time spent is greater than 50% in coordination of care (as documented) at patient's floor/unit and/or counseling patient: Coding Level of Care Code 70394 Post Operative Follow-Up Diagnoses Status post right knee replacement Z96.651
--- NOTE | 2022-11-28 09:30 | Discharge Summary ---
Date of Service November 28, 2022 Admission HPI (Per Admitting) Joon is a pleasant 76-year-old male who is well known to me. I did a shoulder replacement on him in the past and that did well. I have been treating him for osteoarthritis of both knees. I have given him injection. Unfortunately, the injections are no longer helping. He is really struggling with his knees. His right is worse than his left. After failing conservative treatment, he has elected to proceed with a right total knee arthroplasty. . Admission Exam (Per Admitting) On physical examination the right knee, he has good range of motion of 0 to 120 degrees. No instability. He has pain over the distal medial femoral condyle and over the medial joint line.. Principal Diagnosis Same as "Discharge Diagnosis" noted below under Discharge Instructions. Discharge Exam On physical examination of the right knee, the dressing is clean and dry. He has active dorsiflexion plantarflexion of his right ankle. Sensations intact throughout.. Discharge Data Procedures Performed Operation Date: 11/27/22 11:40 Actual Procedures p Right Total Knee Arthroplasty(Right) - Bong Aponte DO Ordered Studies 11/27/22 05:00 US - OR guided needle placemen Routine Hospital Course (1) Status post right knee replacement: On November 27, 2022 Joon arrived at [facility] and underwent a right knee replacement without complication. He had a spinal anesthetic. Postoperatively he was started on aspirin for DVT prophylaxis and transferred to the general orthopedic floors. His hospital course was uneventful. On postop day #1, his vital signs were stable and his pain was well controlled. He was able to participate well with physical therapy doing ambulation and range of motion exercises. He was then discharged to home. He will follow with orthopedics in 2 weeks. PG Care Time/CCT Total # of Minutes Spent Total Time Spent with Patient: Total time spent is greater than 50% in coordination of care (as documented) at patient's floor/unit and/or counseling patient: Discharge Plan Discharge Items Patient Disposition: Home - Home Health Services Reason For Visit: DJD Right Knee Discharge Diagnosis: Right knee replacement Activity: Per Instructions section Non-emergency contact: Surgeon Call non-emergency contact if: your wound has increased redness and your wound has increased drainage Follow-up/Referrals: Deven Gibbs JR, M.D [Primary Care Provider] - Diet: Regular Addtl Attending Provider Instructions: Activity and Therapy Recommendations: * If you are using [facility] then therapy will be provided at your home until they feel you have accomplished all of your goals. * If you are using [facility] then Physical Therapy will be provided until they feel you are ready to start Outpatient Physical Therapy. * If you are not using home therapy then Outpatient Physical Therapy should start about 3-5 days from your day of surgery. Therapy will last about 6-10 weeks * It is important not to put a pillow under your knee when you are relaxing or sleeping. It is just as important to make sure you are getting your knee perfectly straight as it is to regain your knee bend. * You were shown a series of exercises in the hospital. Do these exercises three times each day including the exercises you were shown in physical therapy. * Get up and walk several times each day. For the first four weeks, try not to stand or walk for more than one hour at a time. If you do stand or walk for more than one hour, you will not hurt anything, but your leg will likely swell. * As you feel comfortable, you may change from the walker or crutches to a cane and then to independent walking. Medications: * Narcotic You will likely be sent home from the hospital with a prescription for the narcotic pain medication that worked best throughout your stay. * Aspirin Most patients will be required to take Aspirin 81mg twice a day for 6 weeks after surgery. This is obtained [id number] and a prescription is not necessary. * Other medications may be prescribed for specific circumstances. If you have any questions, please call the office at . * Resume previous home medications unless otherwise instructed TEDs/Elastic Stockings: The white elastic stockings help limit swelling and prevent blood clots from forming in your legs.~ The more you wear them, the more they work. Wear them for six weeks. Dressing Care: The dressing can be changed after physical therapy on postop day #1. Daily dry dressing changes for a few days, especially if the incision is still draining some. If the incision is not draining then you may leave the henrry open to air. If there is a little bit of drainage or if the henrry are getting stuck on your clothing then cover the incision with a dry dressing. The henrry will be removed at your 2 week follow-up appointment. Showering: You may shower 5 days from the day of surgery as long as the incision is no longer draining. You may shower with the henrry exposed. Let soapy water run over the henrry and pat them dry. Do not scrub or soak the incision. Things To Watch For: * Drainage from the incision site that occurs more than one week after your surgery. * Increased redness at the incision site. * Fever above 102 degrees Fahrenheit. * Unusual chest pain or shortness of breath. * Call [facility] at with any of the above problems Follow-Up Visit: Follow-up with Dr. Aponte's PA (Bong Diaz) 2-3 weeks after your day of surgery. He will remove your henrry and answer any questions. If you have any additional questions or concerns, Dr Aponte is usually in the office at the same time and will be available An appointment was probably scheduled when you signed-up for surgery in the office. If you have any questions call Office Instructions: More detailed instructions as well as Frequently Asked Questions were provided in a folder by our office when you signed-up for surgery. Please review these instructions when you get home. If you have any further questions or concerns, please feel free to call the office at [phone] Pending Studies at Discharge: No Stand-Alone Forms: My [facility] Medications and DC Order Prescriptions: New oxycodone-acetaminophen 5-325 mg tablet 1 tab PO Q6H PRN (Reason: pain) Qty: 30 0RF Continued (DME) [facility] See Rx Instructions .MEDSUPPLY Qty: 1 0RF Rx Instructions: As directed (DME[place] [facility] [place] .MED[place]PPLY Qty: 1 0RF Rx Instructions: As directed metoprolol tartrate 50 mg tablet 50 mg PO BID atorvastatin 40 mg tablet 40 mg PO QAM lisinopril 40 mg tablet 40 mg PO DAILY furosemide 20 mg tablet 20 mg PO Q OTHER DAY hydrochlorothiazide 25 mg tablet 25 mg PO DAILY Centrum 18-400 mg-mcg Tablet 1 tab PO QAM Osteo Bi-Flex Triple Strength 750 mg-644 mg- 30 mg-1 mg Tablet 1 tab PO QAM PreserVision AREDS-2 250-90-40-1 mg Capsule 1 tab PO BID Changed aspirin [Adult Low Dose Aspirin] 81 mg tablet,delayed release (DR/EC) 81 mg PO BID 42 Days Qty: 0 0RF Admission Data Admit Date/Time: 11/27/22 13:36 Attending Provider: Bong Aponte Admit Provider: Bong Aponte Primary Care Provider: Deven Gibbs
== END 2022-11-28 10:56 | disposition home health service (06) ==
LOC: 3E 09:04 → ASU 09:04

== ENCOUNTER 2023-03-05 09:20 | Observation (INO) ==
--- NOTE | 2023-02-27 14:32 | Anesthesiology Consultation ---
Date of Service February 27, 2023 Assessment & Plan (1) Encounter for pre-operative examination: - COVID screening: Per assessment on 02/22: No known COVID-19 positive contacts or current COVID-19 related symptoms. Travel screen negative. Patient vaccinated. At surgeon discretion if preop Covid testing being done. - Outpatient joint assessment: Pt currently scheduled for inpatient pathway. If surgeon requests review for outpatient joint pathway, patient is not recommended candidate for outpatient joint program from anesthesia standpoint. -Cardiology office visit (11/03/22): "Patient has upcoming knee replacement surgery November 27 at [facility] in [place].. Continue current medical therapy.. Aggressive risk factor modification.. 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 Overall, LV function is normal. EF 54%. - Cardiology note (11/23/22, Dr. Sarwat Mojica): "intermediate" risk -Cardiology note (11/23/22): "verbal from Dr Frye, cristina-infarct ischemia inf/lat wall. H/O of CABG x4 in 2019, per Dr. Frye, cleared with intermediate risk. Patient asx" - S/P Right TKA (11/27/22): SAB at L3-4 + PNB at [facility]. No issues noted per post- op anesthesia progress note. - Preop testing: No recent labs. Will update CBC, BMP, coags AM DOS Chart Review Chart Review: Acceptable Risk for Surgery (pending preop labs/evaluation AM DOS) and Patient NOT seen in Pre Admission Testing Teaching & Discussion Pre-Anesthesia Teaching/Discussion Notes: Instructed NPO after midnight before surgery,except medications with 15 cc of water. Medication instructions provided according to the PAT guidelines. History Surgery Operation Date: 03/05/23 07:15 Proposed Procedures p Left Total Knee Arthroplasty - Bong Aponte, Height/Weight Height: 5 ft 8 in Weight: 97.522 kg Allergies Allergy/AdvReac Type Severity Reaction Status Date / Time oxycodone AdvReac Unknown N/V Verified 02/22/23 07:58 Medications Home Medications Medication Instructions Recorded Confirmed Last Taken atorvastatin 40 mg tablet 40 mg PO QAM 09/20/21 02/22/23 11/27/22 06:30 furosemide 20 mg tablet 20 mg PO Q2D 09/20/21 02/22/23 11/26/22 07:00 hydrochlorothiazide 25 mg tablet 25 mg PO QAM 09/20/21 02/22/23 11/26/22 07:00 lisinopril 40 mg tablet 40 mg PO QAM 09/20/21 02/22/23 11/26/22 07:00 metoprolol tartrate 50 mg tablet 50 mg PO BID 09/20/21 02/22/23 11/27/22 06:30 glucosamine 750 pd-[id number] 1 tab PO QAM 10/23/22 02/22/23 11/13/22 no1 644 mg-C 30 mg-jostin 1 mg tablet (Osteo Bi-Flex Triple Strength) multivitamin-ferrous 1 tab PO QAM 10/23/22 02/22/23 11/13/22 fumarate-folic acid 18 mg-400 mcg tablet (Centrum) vit C 250 mg-vit E 90 mg-zinc 40 1 tab PO BID 10/23/22 02/22/23 11/13/22 mg-copper 1 [id number] capsule (PreserVision AREDS-2) Wheeled Walker #1 ea 10/31/22 Unknown Wheeled Walker #1 ea 11/07/22 Unknown aspirin 81 mg tablet,delayed 81 mg PO BID 42 days #0 tabs 11/28/22 02/22/23 11/27/22 06:30 release (Adult Low Dose Aspirin) oxycodone-acetaminophen 5 mg-325 1 tab PO Q6H PRN pain #30 tabs 11/28/22 02/22/23 Unknown mg tablet acetaminophen 325 mg tablet 650 mg PO QID PRN Pain 02/22/23 02/22/23 Unknown Past Medical History Medical History CAD (coronary artery disease) CABG x4 (2019) Follows with Dr. Mojica/Nohelia History of COVID-19 05/2022- sinus congestion, resolved Hx of renal calculi Hyperlipidemia Hypertension Past Surgical History Surgical History (Updated 02/22/23 @ 08:07 by Gris Escobar) History of total knee arthroplasty right Hx of blepharoplasty R/L Hx of cardiac catheterization 12/2019> subsequent CABG done 02/2020; f/u Dr. Mojica [place] Hx of cataract extraction R/L Hx of colonoscopy Hx of four vessel coronary artery bypass graft 02/2020 Hx of shoulder replacement Right TSA (12/28/17): Grade view 1, MAC#3, ETT 7.5 + PNB at [facility]. No issues noted per post-op anesthesia progress note. Social History Smoking Status: Never smoker Do You Dip or Chew Tobacco: No Hx Alcohol Use: Yes Alcohol type: hard liquor alcohol intake frequency: other Alcohol Intake Frequency Comment: ONCE OR TWICE PER WEEK Hx Substance Use: No substance use type: does not use Testing Electrocardiogram Date: 10/30/22 SR with PVCs at 74bpm. Low voltage QRS. Chest X-Ray Date: 10/30/22 FINDINGS: Median sternotomy wires are unchanged. Right shoulder arthroplasty is seen. Calcified aortic knob is seen. The lungs are clear. No evidence of pleural effusion or pneumothorax. IMPRESSION: No acute chest disease. Echocardiogram Date: 06/26/22 EF 55%. Mild LAE. Mild aortic valve calcification. Mild ND. Grade 1 diastolic dysfunction. Stress Test Date: 11/08/22 Type: nuclear No stress-induced changes of ischemia or symptoms to suggest angina. Large area of cristina-infarct ischemia present in the inferior lateral region. overall, LV function is normal. Cardiac Catheterization Date: 12/30/19 Severe CAD with mild LV dysfunction. LVEF 50% by LV Gram. Surgery consult for coronary revascularization recommended >subsequent CABGx4 (02/2020)
[~2023-03-05 09:20] MED LIST changes: +BUPIVACAINE 0.5 % 5 MG/1 ML PF 10ML VIAL ONE; -LR 500ML BOLUS, THEN 15ML/HR IV SCH; -LR 60ML/HR IV SCH
[2023-03-05 10:18] LABS: INR 0.9 (0.9-1.1); Partial Thromboplastin Ratio 0.9; Partial Thromboplastin Time 24.7 Seconds (21.0-31.0); Prothrombin Time 10.4 Seconds (9.0-12.0)
[2023-03-05 10:25] LABS: BUN Creatinine Ratio 19.8 (10-20); Calcium 9.5 mg/dl (8.6-10.3); Creatinine Clr Calc Pharmacy 62.3 ml/min; Est GFR (Non-African American) 61.3 ml/min; Potassium 3.9 mmol/L (3.5-5.1)
[2023-03-05] MEDS: LR 60ML/HR IV SCH ×2 (10:25)
[2023-03-05 10:33] LABS: Basophils # (auto) 0.03 K/uL (0-0.2); Basophils % (auto) 0.4 %; Eosinophils # (auto) 0.11 K/uL (0-0.50); Eosinophils % (auto) 1.4 %; Hematocrit (blood only) 45.4 % (42.0-52.0); Immature Granulocytes # (auto) 0.13 K/uL (0.01-0.20); Immature Granulocytes % (auto) 1.6 %; Lymphocytes # (auto) 1.73 K/uL (1.2-3.4); Lymphocytes % (auto) 21.6 %; Mean Corpuscular Hgb Conc 35.2 g/dL (32.0-36.0); Mean Platelet Volume 9.4 fL (9.4-12.4); Monocytes # (auto) 0.57 K/uL (0.11-0.59); Monocytes % (auto) 7.1 %; Neutrophils # (auto) 5.43 K/uL (1.40-6.50); Neutrophils % (auto) 67.9 %; Platelet Count 79 K/uL (130-400); Platelet Estimate Decreased (Normal); RDW Coefficient of Variation 12.3 % (11.5-14.5); RDW Standard Deviation 37.2 fL (36.4-46.3); Red Blood Count 5.34 M/uL (4.70-6.10)
[2023-03-05] MEDS ORDERED: PROPOFOL IV EMULSION 10 MG/ML 20 ML VIAL IV ONE (11:14)
[2023-03-05] MEDS ORDERED: MIDAZOLAM HCL 1 MG/ML 2ML VIAL ONE (11:14)
[2023-03-05] MEDS ORDERED: LIDOCAINE 2% 2 ML VIAL/AMP(20MG/ML) INFIL ONE (11:14)
[2023-03-05] MEDS ORDERED: ePHEDrine sulfate 50 MG/ML AMP IV PRN (12:01)
[2023-03-05] MEDS ORDERED: fentaNYL citrate PF 100 MCG/2 ML VIAL IV PRN (12:01)
[2023-03-05] MEDS ORDERED: ATROPINE SULFATE 0.1 MG/ML 10ML SYR IV PRN (12:01)
[2023-03-05] MEDS ORDERED: ONDANSETRON INJ 2 MG/ML 2 ML VIAL IV PRN ×2 (12:01→17:04)
--- NOTE | 2023-03-05 12:17 | History & Physical Bridge Note ---
Date of Service March 05, 2023 History & Physical Bridge Note I have examined the patient, reviewed the History & Physical and in the interval since the performance of the History & Physical I have noted the following changes of clinical significance: no changes noted
[2023-03-05] MEDS ORDERED: ORTHO JOINT ANESTHETIC ONE (12:46)
--- NOTE | 2023-03-05 14:35 | Operative Report ---
PG Post Operative Report Pre & Post Diagnosis Operation Date: 03/05/23 12:15 Pre-Op Diagnosis: Left Knee Degenerative Joint Disease Post-Op Diagnosis: Left Knee Degenerative Joint Disease I identified the patient and participated in the time-out.: Yes Procedure Operation Date: 03/05/23 12:15 Actual Procedures p Left Total Knee Arthroplasty(Left) - Bong Aponte DO Surgeon Bong Aponte DO Knotter Bong Diaz PA-C Estimated Blood Loss 30 Findings Consistent with Post-Op Diagnosis Specimens Left femoral tibial bone Description of Procedure Implants used: I used a Sara Persona total knee arthroplasty system with a size 9 standard femur, F tibia, 28 oval patella, and a size 14 medial congruent polyethylene bearing. All components were cemented in place with Biomet cement. Joon arrived [facility] for the above procedure. He was seen in the preoperative holding area and the operative extremity was identified and signed. He was given a preoperative antibiotic, TXA, a spinal anesthetic and an adductor nerve block. He was taken back to the operating room and laid on the table in supine position. He was given basic sedation. The operative knee was then prepped and draped in sterile fashion. A timeout was done, and the patient and the operative extremity was properly identified. A midline incision was made directly over the patella. Dissection was taken down to the extensor mechanism. A midvastus arthrotomy was used. The medial retinaculum was released and the fat pad was mostly excised. The knee was flexed and the ACL, PCL, and meniscus were removed. A drill was sent down the center of the femoral canal followed by an intramedullary jacob. Off that jacob a distal femoral cutting block was placed. 9 mm was resected off the distal femur at 5 of valgus. A posterior referencing AP sizing guide was then placed on the distal femur. The femur measured to be a size 9. 2 drill holes were placed in 3 of external rotation. A 4-in-1 cutting block was then impacted into place. Anterior, posterior, and chamfer cuts were then made. The proximal tibia was then exposed. An external tibial alignment guide was placed. A tibial cut guide was then anchored in place and the proximal tibia was then resected. The posterior aspect of the knee was then opened up and any additional meniscus fragments and osteophytes were removed. The tibia measured to be a size F. The tibial plate was then placed in the appropriate rotation and the tibia was drilled and punched. Trial components were then placed. I used a size 14 medial congruent polyethylene insert. The knee was brought through a full range of motion and felt to be stable. The peg holes for the femoral component were then drilled. The patella was then everted and 9 mm was resected off the posterior aspect of the patella. The patella measured to be a size 28 oval. 3 peg holes were then drilled. A trial patella was placed. The knee was once again brought through a full range of motion and felt to be stable. Trial components were then removed. The surrounding soft tissues were injected with 100 cc of an orthopedic pain control cocktail. All components were then cemented into place with Biomet cement. The final polyethylene insert was then snapped into place. Once cement was dry the tourniquet was deflated. Hemostasis was obtained. A dilute betadyne lavage was then done for 3 minutes. The joint was then irrigated with normal saline solution. The midvastus arthrotomy was then closed with #1 Vicryl suture. The skin was closed with 2-0 Vicryl, 3-0V lock suture, and henrry. A soft compressive dressing was placed. He was then transferred to a hospital bed and taken to the postanesthesia care unit in stable condition. He tolerated the procedure well. Bong Diaz PA-C, was present for the entire procedure. He was critical for patient positioning, prepping, draping, retraction exposure, wound closure and application of sterile dressing. I attest to the content of the Intraoperative Record and any orders documented therein. Any exceptions are noted below.
--- NOTE | 2023-03-05 15:31 | XRay Report ---
LEFT KNEE 2 VIEWS History: Left total knee arthroplasty. Degenerative arthritis. Postop. FINDINGS: The patient is status post a left total knee arthroplasty. The hardware is intact. No fract ure or dislocation. Skin henrry are in place. IMPRESSION: Left total knee arthroplasty. No evidence for hardware complication. ACT 112: Negative or not required by law. Electronically signed by: Nader Haines M.D. 03/05/2023 3:29 PM
--- NOTE | 2023-03-05 15:54 | Anesthesiology Progress Note ---
Date of Service March 05, 2023 Anesthesia Post Procedure Vital Signs Vital Signs: Temp Pulse Resp BP Pulse Ox O2 Del Method O2 Flow Rate 03/05/23 15:40 62 16 117/65 94 Room Air 03/05/23 15:30 63 14 103/65 93 Room Air 03/05/23 15:20 62 16 105/62 96 Room Air 03/05/23 15:10 65 20 117/66 95 Room Air 03/05/23 15:00 66 17 107/65 97 Oxymask 5 03/05/23 14:54 97.3 F L 69 16 110/64 98 Oxymask 5 Pain Intensity Left Knee: Pain Intensity: 0 Transfer of Care Handoff Completed per policy Notes Mental Status: alert / awake / arousable and participated in evaluation Patient Amnestic to Procedure: Yes Nausea / Vomiting: adequately controlled Pain: adequately controlled Airway Patency, RR, SpO2: stable & adequate BP & HR: stable & adequate Hydration State: stable & adequate Neuraxial Anesthesia: was administered and sensory block is resolving Anesthetic Complications: no major complications apparent and Pt Satisfied with anesthetic care
[2023-03-05] MEDS ORDERED: FUROSEMIDE 20 MG TAB PO SCH (17:04)
[2023-03-05] MEDS ORDERED: bisacodyL 10 MG SUPP PR PRN (17:04)
[2023-03-05] MEDS ORDERED: MAGNESIUM HYDROXIDE SUSP 30 ML UDC PO PRN (17:04)
[2023-03-05] MEDS ORDERED: HYDROCODONE/ACETAMOPHEN 5/325MG TAB PO PRN (17:04)
[2023-03-05] MEDS ORDERED: METOCLOPRAMIDE HCL INJ 5 MG/ML 2 ML VIAL IV PRN (17:04)
[2023-03-05] MEDS ORDERED: HYDROmorphone INJ 0.5 MG/0.5 ML SYR IV PRN (17:04)
[2023-03-05] MEDS ORDERED: NALOXONE HCL 0.4 MG/1 ML VIAL/CARP IV PRN (17:04)
[2023-03-05] MEDS: SODIUM CHLORIDE 0.9% 1000ML 1,000 ML IV SCH (17:15)
[2023-03-05] MEDS: KETOROLAC TROMETHAMINE 15 MG/ML VIAL IV SCH ×2 (18:23→22:41)
[2023-03-05] MEDS ORDERED: dexAMETHasone 4 MG TAB PO SCH (20:00)
[2023-03-05] MEDS ORDERED: SENNA 8.6 MG TAB PO SCH (21:00)
[2023-03-05] MEDS ORDERED: NON-FORMULARY MEDICATION (Vit C,E-Zn-Coppr-Lutein-Zeaxan [Preservision Areds-2] 250-90-40- PO SCH (21:00)
[2023-03-05] MEDS: ceFAZolin 2000MG 2,000 MG/15 ML SYR IV SCH (21:02)
[2023-03-05] MEDS: DOCUSATE SODIUM 100 MG CAP PO SCH (21:02)
[2023-03-05] MEDS: ASPIRIN 81 MG ECTAB PO SCH (21:02)
[2023-03-05] MEDS: METOPROLOL TARTRATE 50 MG TAB PO SCH (21:03)
[2023-03-06] MEDS: SODIUM CHLORIDE 0.9% 1000ML 1,000 ML IV SCH (03:21)
[2023-03-06] MEDS: KETOROLAC TROMETHAMINE 15 MG/ML VIAL IV SCH ×2 (04:46→10:51)
[2023-03-06] MEDS: ceFAZolin 2000MG 2,000 MG/15 ML SYR IV SCH (04:46)
--- NOTE | 2023-03-06 07:00 | Orthopedic Progress Note ---
Date of Service March 06, 2023 Assessment & Plan (1) Status post left knee replacement: Overall he is doing very well. He is not having much pain in the left knee. He will be seen by physical therapy today for ambulation and range of motion exercises. He is on aspirin for DVT prophylaxis. He can be discharged home later today. He will follow-up with orthopedics in 2 weeks. Kendall Dupree was seen and examined at bedside this morning. Overall he is doing very well. He is not having much pain in the left knee. He has been up and ambulating around the hallways. He has no complaints.. Review of Systems All systems reviewed & are unremarkable except as noted in HPI & below. Physical Exam On physical examination of left knee, the dressing is clean and dry. His leg is out full extension. He has active dorsiflexion plantarflexion of his left ankle. Sensation is intact throughout.. Results & Data Results & Data Laboratory Results . Diagnostic Findings Postoperative x-rays of the left knee show the prosthesis to be in anatomic alignment without any evidence of fracture, dislocation, or loosening.. PG Care Time/CCT Total # of Minutes Spent Total Time Spent with Patient: Total time spent is greater than 50% in coordination of care (as documented) at patient's floor/unit and/or counseling patient: Coding Level of Care Code 82376 Post Operative Follow-Up Diagnoses Status post left knee replacement Z96.652
--- NOTE | 2023-03-06 07:01 | Discharge Summary ---
Date of Service March 06, 2023 Principal Diagnosis Same as "Discharge Diagnosis" noted below under Discharge Instructions. Discharge Exam On physical examination of left knee, the dressing is clean and dry. His leg is out full extension. He has active dorsiflexion plantarflexion of his left ankle. Sensation is intact throughout.. Discharge Data Procedures Performed Operation Date: 03/05/23 12:15 Actual Procedures p Left Total Knee Arthroplasty(Left) - Bong Aponte DO Ordered Studies 03/05/23 05:00 US - OR guided needle placemen Routine Hospital Course (1) Status post left knee replacement: On March 05, 2023 Jono arrived at [facility] and underwent a left knee replaced without complication. He had a spinal anesthetic. Postoperatively he was started on aspirin for DVT prophylaxis and transferred to the general orthopedic floors. His hospital course was uneventful. On postop day #1, his vital signs were stable and his pain was well controlled. He was able to participate well with physical therapy doing ambulation and range of motion exercises. He was then discharged home. He will follow-up with orthopedics in 2 weeks. PG Care Time/CCT Total # of Minutes Spent Total Time Spent with Patient: Total time spent is greater than 50% in coordination of care (as documented) at patient's floor/unit and/or counseling patient: Discharge Plan Discharge Items Patient Disposition: Home - Home Health Services Reason For Visit: POST OP Discharge Diagnosis: Left knee replacement Activity: Per Instructions section Non-emergency contact: Surgeon Call non-emergency contact if: your wound has increased redness and your wound has increased drainage Follow-up/Referrals: Deven Gibbs JR, M.D [Primary Care Provider] - Diet: Regular Addtl Attending Provider Instructions: Activity and Therapy Recommendations: * If you are using [facility] then therapy will be provided at your home until they feel you have accomplished all of your goals. * If you are using [facility] then Physical Therapy will be provided until they feel you are ready to start Outpatient Physical Therapy. * If you are not using home therapy then Outpatient Physical Therapy should start about 3-5 days from your day of surgery. Therapy will last about 6-10 weeks * It is important not to put a pillow under your knee when you are relaxing or sleeping. It is just as important to make sure you are getting your knee perfectly straight as it is to regain your knee bend. * You were shown a series of exercises in the hospital. Do these exercises three times each day including the exercises you were shown in physical therapy. * Get up and walk several times each day. For the first four weeks, try not to stand or walk for more than one hour at a time. If you do stand or walk for more than one hour, you will not hurt anything, but your leg will likely swell. * As you feel comfortable, you may change from the walker or crutches to a cane and then to independent walking. Medications: * Aspirin Most patients will be required to take Aspirin 81mg twice a day for 6 weeks after surgery. This is obtained hvab-xbr-pjwmfue and a prescription is not necessary. * Other medications may be prescribed for specific circumstances. If you have any questions, please call the office at . * Resume previous home medications unless otherwise instructed TEDs/Elastic Stockings: The white elastic stockings help limit swelling and prevent blood clots from forming in your legs.~ The more you wear them, the more they work. Wear them for six weeks. Dressing Care: The dressing can be changed after physical therapy on postop day #1. Daily dry dressing changes for a few days, especially if the incision is still draining some. If the incision is not draining then you may leave the henrry open to air. If there is a little bit of drainage or if the henrry are getting stuck on your clothing then cover the incision with a dry dressing. The henrry will be removed at your 2 week follow-up appointment. Showering: You may shower 5 days from the day of surgery as long as the incision is no longer draining. You may shower with the henrry exposed. Let soapy water run over the henrry and pat them dry. Do not scrub or soak the incision. Things To Watch For: * Drainage from the incision site that occurs more than one week after your surgery. * Increased redness at the incision site. * Fever above 102 degrees Fahrenheit. * Unusual chest pain or shortness of breath. * Call [facility] at with any of the above problems Follow-Up Visit: Follow-up with Dr. Aponte's PA (Bong Diaz) 2-3 weeks after your day of surgery. He will remove your henrry and answer any questions. If you have any additional questions or concerns, Dr Aponte is usually in the office at the same time and will be available An appointment was probably scheduled when you signed-up for surgery in the office. If you have any questions call Office Instructions: More detailed instructions as well as Frequently Asked Questions were provided in a folder by our office when you signed-up for surgery. Please review these instructions when you get home. If you have any further questions or concerns, please feel free to call the office at [phone] Pending Studies at Discharge: No Stand-Alone Forms: My [facility] Medications and DC Order Prescriptions: Continued [facility]DME[facility] See Rx Instructions .MEDSUPPLY Qty: 1 0RF Rx Instructions: As directed (DME) [facility] See Rx Instructions .MEDSUPPLY Qty: 1 0RF Rx Instructions: As directed metoprolol tartrate 50 mg tablet 50 mg PO BID atorvastatin 40 mg tablet 40 mg PO QAM lisinopril 40 mg tablet 40 mg PO QAM furosemide 20 mg tablet 20 mg PO Q2D hydrochlorothiazide 25 mg tablet 25 mg PO QAM Centrum 18-400 mg-mcg Tablet 1 tab PO QAM Osteo Bi-Flex Triple Strength 750 mg-644 mg- 30 mg-1 mg Tablet 1 tab PO QAM PreserVision AREDS-2 250-90-40-1 mg Capsule 1 tab PO BID aspirin [Adult Low Dose Aspirin] 81 mg tablet,delayed release (DR/EC) 81 mg PO BID 42 Days Qty: 0 0RF Patient Comments: only been taking 1 per day acetaminophen 325 mg Tablet 650 mg PO QID PRN (Reason: Pain) Admission Data Admit Date/Time: 03/05/23 14:55 Attending Provider: Bong Aponte Admit Provider: Bong Aponte Primary Care Provider: Deven Gibbs
[2023-03-06] MEDS: METOPROLOL TARTRATE 50 MG TAB PO SCH (08:16)
[2023-03-06] MEDS: DOCUSATE SODIUM 100 MG CAP PO SCH (08:17)
[2023-03-06] MEDS: ASPIRIN 81 MG ECTAB PO SCH (08:17)
[2023-03-06] MEDS ORDERED: ATORVASTATIN 40 MG TAB PO SCH (09:00)
[2023-03-06] MEDS ORDERED: hydroCHLOROthiazide 25 MG TAB PO SCH (09:00)
[2023-03-06] MEDS ORDERED: MULTIVITAMIN TAB PO SCH (09:00)
[2023-03-06] MEDS ORDERED: lisinopril 40 MG TAB PO SCH (09:00)
== END 2023-03-06 11:35 | disposition home health service (06) ==
LOC: ASU 09:20 → 3E 09:20

== ENCOUNTER 2024-07-04 10:32 | Observation (INO) ==
--- NOTE | 2024-05-19 10:08 | PAT Medication Instructions ---
Medication Instructions Date of Service May 19, 2024 Home Medications Medication Instructions Recorded Wheeled Walker #1 ea 10/31/22 Wheeled Walker #1 ea 11/07/22 aspirin 81 mg tablet,delayed 81 mg PO BID 42 days #0 tabs 11/28/22 release (Adult Low Dose Aspirin) atorvastatin 40 mg tablet 40 mg PO QAM furosemide 20 mg tablet 20 mg PO Q2D hydrochlorothiazide 25 mg tablet 25 mg PO QAM lisinopril 40 mg tablet 40 mg PO QAM metoprolol tartrate 50 mg tablet 50 mg PO BID glucosamine 750 ks-wbwrqmttkqf-qbu no1 644 mg-C 30 mg-jostin 1 mg tablet (Osteo Bi-Flex Triple Strength) 1 tab PO QAM multivitamin-ferrous fumarate-folic acid 18 mg-400 mcg tablet (Centrum) 1 tab PO QAM vit C 250 mg-vit E 90 mg-zinc 40 mg-copper 1 ms-vqpncd-wfkmvf capsule (PreserVision AREDS-2) 1 tab PO BID aspirin 81 mg tablet,delayed release (Adult Low Dose Aspirin) 81 mg PO BID acetaminophen 325 mg tablet 650 mg PO QID PRN Pain cholecalciferol (vitamin D3) 25 mcg (1,000 unit) chewable tablet (Vitamin D3) 25 mcg PO DAILY pyridoxine (vitamin B6) 25 mg tablet (Vitamin B-6) 25 mg PO DAILY vitamin B complex 1 tab PO DAILY ASK your prescriber and surgeon aspirin 81 mg tablet,delayed release (Adult Low Dose Aspirin) 81 mg PO BID STOP taking 2 weeks before surgery (or as soon as possible if surgery is within 2 weeks) glucosamine 750 gu-zjoufyodqro-ynl no1 644 mg-C 30 mg-jostin 1 mg tablet (Osteo Bi-Flex Triple Strength) 1 tab PO QAM vit C 250 mg-vit E 90 mg-zinc 40 mg-copper 1 ug-smlnww-ntcugg capsule (PreserVision AREDS-2) 1 tab PO BID DO NOT take the morning of surgery furosemide 20 mg tablet 20 mg PO Q2D hydrochlorothiazide 25 mg tablet 25 mg PO QAM lisinopril 40 mg tablet 40 mg PO QAM multivitamin-ferrous fumarate-folic acid 18 mg-400 mcg tablet (Centrum) 1 tab PO QAM cholecalciferol (vitamin D3) 25 mcg (1,000 unit) chewable tablet (Vitamin D3) 25 mcg PO DAILY pyridoxine (vitamin B6) 25 mg tablet (Vitamin B-6) 25 mg PO DAILY vitamin B complex 1 tab PO DAILY Take morning of surgery With a small sip of water, OTHERWISE NOTHING TO EAT OR DRINK AFTER MIDNIGHT: atorvastatin 40 mg tablet 40 mg PO QAM metoprolol tartrate 50 mg tablet 50 mg PO BID acetaminophen 325 mg tablet 650 mg PO QID PRN Pain (if needed) Take evening before surgery metoprolol tartrate 50 mg tablet 50 mg PO BID acetaminophen 325 mg tablet 650 mg PO QID PRN Pain (if needed) Other Notes If you have any questions please call us at [phone] or [phone] or [phone] or [phone]
--- NOTE | 2024-05-21 13:58 | Anesthesiology Consultation ---
Date of Service May 21, 2024 Assessment & Plan (1) Encounter for pre-operative examination: - awaiting 06/18/24 Dr. Mojica [place] PA cardiology pre-operative evaluation. Optimization form to be faxed. - Case discussed in detail with Dr. Mensah who advised patient to have cardiology evaluation prior to surgery. I notified cardiology office and scheduling advised 05/26/24 that patient is scheduled 06/18/24. Patient and surgeon's office were made aware. - cardiology office visit 03/31/24: "...follow up for coronary artery disease with history of coronary artery bypass graft surgery...feels ok overall...abnormal stress test but no syncope...continue current medical therapy. Aggressive risk factor modification...follow up in 3 months...will consider catheterization if becomes symptomatic..." - Outpatient joint pathway: Per surgeon and patient, plan for outpatient joint program. Pending above. Chart Review Chart Review: Pending: Refer to Additional Notes / Consult section and Patient seen in Pre Admission Testing Teaching & Discussion Pre-Anesthesia Teaching/Discussion Notes: Instructed NPO after midnight before surgery, except medications with 15 cc of water. Medication instructions provided according to the PAT guidelines. History Surgery Operation Date: 07/04/24 07:00 Proposed Procedures p OP: Left Anatomic Total Shoulder Arthroplasty versus Left Reverse Total Shoulder Arthroplasty - Bong Aponte DO Height/Weight Height: 5 ft 8 in Weight: 99.4 kg Allergies Allergy/AdvReac Type Severity Reaction Status Date / Time oxycodone AdvReac Severe Confusion Verified 05/19/24 07:33 Medications Home Medications Medication Instructions Recorded Confirmed Last Taken atorvastatin 40 mg tablet 40 mg PO QAM 09/20/21 05/19/24 03/05/23 06:00 furosemide 20 mg tablet 20 mg PO Q2D 09/20/21 05/19/24 03/02/23 hydrochlorothiazide 25 mg tablet 25 mg PO QAM 09/20/21 05/19/24 03/04/23 09:00 lisinopril 40 mg tablet 40 mg PO QAM 09/20/21 05/19/24 03/04/23 08:00 metoprolol tartrate 50 mg tablet 50 mg PO BID 09/20/21 05/19/24 11/27/22 06:30 glucosamine 750 zn-qtjlqiwrjza-knk 1 tab PO QAM 10/23/22 05/19/24 02/19/23 no1 644 mg-C 30 mg-jostin 1 mg tablet (Osteo Bi-Flex Triple Strength) multivitamin-ferrous 1 tab PO QAM 10/23/22 05/19/24 02/19/23 fumarate-folic acid 18 mg-400 mcg tablet (Centrum) vit C 250 mg-vit E 90 mg-zinc 40 1 tab PO BID 10/23/22 05/19/24 02/19/23 mg-copper 1 dj-arxfgu-dcqhnn capsule (PreserVision AREDS-2) Wheeled Walker #1 ea 10/31/22 02/13/24 Unknown Wheeled Walker #1 ea 11/07/22 02/13/24 Unknown aspirin 81 mg tablet,delayed 81 mg PO BID 42 days #0 tabs 11/28/22 05/19/24 03/04/23 08:00 release (Adult Low Dose Aspirin) acetaminophen 325 mg tablet 650 mg PO QID PRN Pain 02/22/23 05/19/24 03/04/23 09:00 cholecalciferol (vitamin D3) 25 25 mcg PO DAILY 05/19/24 05/19/24 Unknown mcg (1,000 unit) chewable tablet (Vitamin D3) pyridoxine (vitamin B6) 25 mg 25 mg PO DAILY 05/19/24 05/19/24 Unknown tablet (Vitamin B-6) vitamin B complex 1 tab PO DAILY 05/19/24 05/19/24 Unknown Past Medical History Medical History CAD (coronary artery disease) CABG x4 (2019) Follows with Dr. Mojica/[facility] History of COVID-19 05/2022- sinus congestion, resolved Hx of renal calculi (~10/2021) Hyperlipidemia Hypertension controlled, stable per pt Osteoarthritis Patient denies h/o stroke, seizures, heart attack, heart failure, DM, blood clots/DVTs or blood transfusions. Exercise / Class Metabolic Activity II 4-5 Yardwork/Stairs/Walk up hill (denies chest discomfort or shortness of breath with one flight of stairs) Past Surgical History Surgical History History of total knee arthroplasty right/ left Hx of blepharoplasty R/L Hx of cardiac catheterization 12/2019> subsequent CABG done 02/2020; f/u [facility] Hx of cataract extraction R/L Hx of colonoscopy Hx of four vessel coronary artery bypass graft 02/2020 Hx of shoulder replacement Right TSA (12/28/17): Grade view 1, MAC#3, ETT 7.5 + PNB at [facility]. No issues noted per post-op anesthesia progress note. Past Anesthesia History No Hx of Anesthesia Complications and No Family Hx of Anesthesia Complications History of PONV No Hx of PONV and No Hx of Motion Sickness Social History Smoking Status: Never smoker Do You Dip or Chew Tobacco: No Hx Alcohol Use: Yes Alcohol type: hard liquor alcohol intake frequency: a few times a week Hx Substance Use: No substance use type: does not use Review of Systems Occasional snoring, denies witnessed apneas. Patient denies chest pain, shortness of breath, dyspnea on exertion, reflux, fever, chills, cough, wheezing, or palpitations. Physical Exam Vital Signs Vitals BP 153/88 P 70 TEMP 98.3 SP02 94% on RA RESP 18 Physical Patient resting comfortably in chair in no acute distress, alert and oriented, responding appropriately throughout visit Full cervical extension range of motion without pain TMD 3.5 finger breadths Mallampati Score 3 Dentition: one crown, denies chipped or loose teeth, implants or bridges Lungs: normal respiratory effort. Good air movement, clear throughout to auscultation, no adventitious breath sounds Cardiac: regular rate and rhythm, no murmurs noted Carotid arteries: negative bruit bilat Lab Results Anesthesia Preop Results Results Anesthesia Widget: WBC 7.57 K/ul (4.8-10.8) 05/21/24 Hgb 16.4 g/dl (14.0-18.0) 05/21/24 Hct 47.2 % (42.0-52.0) 05/21/24 Plt 161 K/uL (130-400) 05/21/24 Na 138 mmol/L (136-145) 05/21/24 K 3.9 mmol/L (3.5-5.1) 05/21/24 Cl 99 mmol/L (98-107) 05/21/24 CO2 30 mmol/L (21-32) 05/21/24 BUN 26 mg/dl (6-23) H 05/21/24 Creat 1.38 mg/dl (0.6-1.4) 05/21/24 Glucose Level 92 mg/dl (70-99(Fasting)) 05/21/24 PT 10.2 Seconds (9.0-12.0) 05/21/24 PTT 25 Seconds (21-31) 05/21/24 INR 0.9 (0.9-1.1) 05/21/24 Blood Type A Positive 05/21/24 Antibody Screen NEGATIVE 05/21/24 Testing Electrocardiogram Date: 12/10/23 No formal report, appears NSR Rate 63 bpm Chest X-Ray Date: 05/21/24 No acute chest disease. Echocardiogram Date: 01/30/24 EF 45-50% Severe LVH with paradoxical septal motion Moderately dilated atria Mildly dilated aortic root at 4.0 cm Mild mitral regurgitation Mild tricuspid regurgitation Aortic valve is mildly thickened with no significant stenosis, trace regurgitation Stress Test Date: 03/12/24 No stress-induced changes of ischemia on EKG or symptoms to suggest angina Moderate perfusion abnormality of moderate intensity in the inferior lateral regiona EF 56% Cardiac Catheterization Date: 12/30/19 Left main: mild luminal irregularities less than 30% LAD: eccentric 60% proximal lesion in LAD; tubular 100% proximal lesion in LAD Cx: severe 100% ostial lesion in MARTHA RCA: occluded, 100% proximal lesion Collateral flow from MARTHA to MARTHA; SEP to RCA; left to right and left to left Surgery consult for coronary revascularization
--- NOTE | 2024-07-03 08:32 | History & Physical Report ---
Date of Service July 03, 2024 Assessment & Plan (1) Osteoarthritis of left shoulder: We will proceed with a left total shoulder arthroplasty. Postoperatively he will be placed in a sling and kept overnight in the hospital for postop medical management. He plans to go to outpatient physical therapy in [place] upon discharge. History of Present Illness Chief Complaint: Osteoarthritis of the left shoulder. Primary Care Provider: Deven Dupree is a pleasant 78-year-old male who has been dealing with chronic increasing left shoulder pain. X-rays and clinical examination have been diagnostic for advanced arthritis of the left shoulder. After failing conservative treatment, he has elected proceed with a left total shoulder arthroplasty. Allergies Allergy/AdvReac Type Severity Reaction Status Date / Time oxycodone AdvReac Severe Confusion Verified 05/19/24 07:33 Home Medications Medication Instructions Recorded Confirmed Type atorvastatin 40 mg tablet 40 mg PO QAM 09/20/21 05/19/24 History furosemide 20 mg tablet 20 mg PO Q2D 09/20/21 05/19/24 History hydrochlorothiazide 25 mg tablet 25 mg PO QAM 09/20/21 05/19/24 History lisinopril 40 mg tablet 40 mg PO QAM 09/20/21 05/19/24 History metoprolol tartrate 50 mg tablet 50 mg PO BID 09/20/21 05/19/24 History glucosamine 750 ye-cdyquokccxw-ymy 1 tab PO QAM 10/23/22 05/19/24 History no1 644 mg-C 30 mg-jostin 1 mg tablet (Osteo Bi-Flex Triple Strength) multivitamin-ferrous 1 tab PO QAM 10/23/22 05/19/24 History fumarate-folic acid 18 mg-400 mcg tablet (Centrum) vit C 250 mg-vit E 90 mg-zinc 40 1 tab PO BID 10/23/22 05/19/24 History mg-copper 1 iz-kunlby-qndabt capsule (PreserVision AREDS-2) Wheeled Walker #1 ea 10/31/22 02/13/24 Rx Wheeled Walker #1 ea 11/07/22 02/13/24 Rx aspirin 81 mg tablet,delayed 81 mg PO BID 42 days #0 tabs 11/28/22 05/19/24 Rx release (Adult Low Dose Aspirin) acetaminophen 325 mg tablet 650 mg PO QID PRN Pain 02/22/23 05/19/24 History cholecalciferol (vitamin D3) 25 25 mcg PO DAILY 05/19/24 05/19/24 History mcg (1,000 unit) chewable tablet (Vitamin D3) pyridoxine (vitamin B6) 25 mg 25 mg PO DAILY 05/19/24 05/19/24 History tablet (Vitamin B-6) vitamin B complex 1 tab PO DAILY 05/19/24 05/19/24 History Past Med/Surg History Problem List Osteoarthritis of left shoulder Status post left knee replacement (~02/2023) Status post right knee replacement (~11/2022) Encounter for pre-operative examination Gluteal tendinitis of both buttocks Greater trochanteric bursitis of left hip Greater trochanteric bursitis of right hip Osteoarthritis of right shoulder Medical History Osteoarthritis CAD (coronary artery disease) CABG x4 (2019) Follows with Dr. Mojica/[facility] Hyperlipidemia Hypertension controlled, stable per pt Hx of renal calculi (~10/2021) History of COVID-19 05/2022- sinus congestion, resolved Surgical History History of total knee arthroplasty right/ left Hx of cardiac catheterization 12/2019> subsequent CABG done 02/2020; f/u [facility] Hx of colonoscopy Hx of blepharoplasty R/L Hx of cataract extraction R/L Hx of shoulder replacement Right TSA (12/28/17): Grade view 1, MAC#3, ETT 7.5 + PNB at [facility]. No issues noted per post-op anesthesia progress note. Hx of four vessel coronary artery bypass graft 02/2020 Social History Smoking Status: Never smoker Second Hand Exposure: Yes (HX); Do You Dip or Chew Tobacco: No; Tobacco Cessation Education Requested by Patient: No Hx Alcohol Use: Yes Alcohol type: hard liquor Hx Substance Use: No Preferred Language: Burundian Communication Ability: Effective Training And Development Director Required: No Beliefs That Will Affect Care: None Current Living Situation: Spouse and Family Other Information That Helps Us Care for You: No Feels Safe at Home: Yes Safety Concerns: Feels Safe At This Time Assistive Devices: Hearing Aid - Bilateral Review of Systems All systems reviewed & are unremarkable except as noted in HPI & below. Physical Exam On physical examination of the left shoulder, he has decreased range of motion. He has pain over the glenohumeral joint line. He has 5 out of 5 muscle strength throughout.. Constitutional WD/WN, vitals as above Eyes PERRL, conjunctivae normal, anicteric sclerae ENMT external ear and nose normal, oropharynx normal Neck trachea midline, no thyromegaly Respiratory normal respiratory effort Cardiovascular RRR, no murmur, no edema Gastrointestinal (Abdomen) normal bowel sounds, soft, nontender, no hepatosplenomegaly Psychiatric A+Ox3, euthymic affect Results & Data Results & Data Laboratory Results . Diagnostic Findings X-rays of the left shoulder show advanced osteoarthritis with joint space narrowing, osteophyte formation, and cjce-qn-qdub articulation. PG Care Time/CCT Total # of Minutes Spent Total Time Spent with Patient: Total time spent is greater than 50% in coordination of care (as documented) at patient's floor/unit and/or counseling patient: Coding Level of Care Code None Diagnoses Osteoarthritis of left shoulder M19.012
[~2024-07-04 10:32] MED LIST changes: -ACETAMINOPHEN 500 MG TAB PO SCH; -FAMOTIDINE 20 MG TAB PO SCH; -GABAPENTIN 300 MG CAP PO SCH; -ORTHO JOINT MIX INFIL SCH; -ROPIVACAINE 0.5% 5 MG/ML 30 ML VIAL ONE; -TRANEXAMIC ACID 1,000 MG **IV Intra-op IV SCH; -TRANEXAMIC ACID 1,000 MG **IV Pre-op IV SCH; -ceFAZolin 2000MG 2,000 MG/15 ML SYR IV SCH; -dexAMETHasone 4 MG TAB PO SCH
[2024-07-04] MEDS: LR 15ML/HR IV SCH (11:20)
[2024-07-04] MEDS: ACETAMINOPHEN 500 MG TAB PO SCH (11:21)
[2024-07-04] MEDS: dexAMETHasone**PF** 10 MG/ML VIAL IV SCH (11:21)
[2024-07-04] MEDS: LR 60ML/HR IV SCH (11:21)
[2024-07-04] MEDS: GABAPENTIN 300 MG CAP PO SCH (11:22)
[2024-07-04] MEDS: FAMOTIDINE 20 MG TAB PO SCH (11:22)
[2024-07-04] MEDS ORDERED: fentaNYL citrate PF 100 MCG/2 ML VIAL IV PRN (11:37)
[2024-07-04] MEDS ORDERED: ONDANSETRON INJ 2 MG/ML 2 ML VIAL IV PRN ×2 (11:37→15:26)
[2024-07-04] MEDS ORDERED: ePHEDrine sulfate 50 MG/ML AMP IV PRN (11:37)
[2024-07-04] MEDS ORDERED: ATROPINE SULFATE 0.1 MG/ML 10ML SYR IV PRN (11:37)
--- NOTE | 2024-07-04 12:15 | History & Physical Bridge Note ---
Date of Service July 04, 2024 History & Physical Bridge Note I have examined the patient, reviewed the History & Physical and in the interval since the performance of the History & Physical I have noted the following changes of clinical significance: no changes noted
[2024-07-04] MEDS ORDERED: PROPOFOL IV EMULSION 10 MG/ML 20 ML VIAL IV ONE (12:46)
[2024-07-04] MEDS ORDERED: LIDOCAINE 2% 2 ML VIAL/AMP(20MG/ML) INFIL ONE (12:46)
[2024-07-04] MEDS ORDERED: DEXAMETHASONE SOD INJ 4 MG/ML VIAL ONE (12:46)
[2024-07-04] MEDS ORDERED: ONDANSETRON INJ 2 MG/ML 2 ML VIAL ONE (12:46)
[2024-07-04] MEDS ORDERED: fentaNYL citrate PF 100 MCG/2 ML VIAL ONE ×2 (12:47→13:54)
[2024-07-04] MEDS ORDERED: MIDAZOLAM HCL 1 MG/ML 2ML VIAL ONE (12:47)
[2024-07-04] MEDS: TRANEXAMIC ACID 1,000 MG **IV Pre-op IV SCH (13:07)
[2024-07-04] MEDS: ceFAZolin 2000MG 2,000 MG/15 ML SYR IV SCH ×2 (13:19→21:12)
[2024-07-04] MEDS ORDERED: PHENYLEPHRINE 100MCG/ML 10ML SYR IV ONE (13:39)
[2024-07-04] MEDS: ORTHO JOINT ANESTHETIC ONE (14:04)
[2024-07-04] MEDS ORDERED: ePHEDrine sulfate 50 MG/ML AMP ONE (14:22)
[2024-07-04] MEDS: ROPIV 0.5% 246mg, Ketorolac 30mg, EPINEPHrine 0.5mg in NSS INFIL SCH (14:27)
[2024-07-04] MEDS: TRANEXAMIC ACID 1,000 MG **IV Intra-op IV SCH (14:50)
--- NOTE | 2024-07-04 14:59 | Operative Report ---
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 A tenodesis was opted. This was a separate and distinct portion of the procedure. For these reasons, a CPT code modifier 59 will be added to this case. Implants used: I used a [employer] Comprehensive total shoulder arthroplasty system with a size 13 press fit micro humeral stem, a size 50 x 21 eccentric humeral head, and a size 4 glenoid with a trabecular metal peg. The glenoid was cemented in place with Palacos G cement. Joon arrived at [facility] for the above procedure. He was seen in the preoperative holding area and the operative extremity was identified and signed. He was given a preoperative antibiotic, TXA, and an interscalene nerve block. He was taken back to the operating room, laid on table in supine position, and put under general anesthesia. He was then put into the beachchair position. The shoulder was then prepped and draped in sterile fashion. A timeout was done and the patient and the operative extremity was properly identified. A deltopectoral approach was used. Dissection was taken down through the fascia and the deltoid was retracted laterally and the conjoined tendon was retracted medially. The anterior shoulder was exposed. The biceps groove was opened up and the biceps tendon was examined extensively. The biceps tendon demonstrated enlargement and inflammatory changes consistent with longstanding inflammation in the context of osteoarthritis. The long head of the biceps tendon was then tenodesed to the upper border of the pectoralis major. This was a separate and distinct portion of the procedure. The subscapularis was then released off the lesser tuberosity with a centimeter of cuff tissue remaining. The inferior capsule was released and the humeral head was dislocated. The rotator cuff was inspected and intact. A canal finding reamer was sent down the center of the humeral canal. Sequential reaming up to a size 13 reamer was done. Offset reamer a proximal humeral resection guide was placed. The proximal humerus was resected at 135 of inclination and 30 of retroversion. Inferior osteophytes were then removed and the glenoid was exposed. Time was spent doing an appropriate labral release. The glenoid measured to be a size 4. A [employer] Signature One guide was then attached onto the anterior rim of the glenoid. A 3.2 mm Steinmann pin was then placed in the total shoulder arthroplasty hole. The glenoid was then reamed with a propeller reamer. The central post cutter was then used to prepare for the central boss. The cannulated peripheral peg drill guide was then placed and 3 peg holes were drilled. The final size 4 glenoid was then cemented in place with Palacos G cement. Surrounding soft tissues were then injected with 100 cc of an orthopedic pain control cocktail. Once cement had dried the proximal humerus was once again exposed. Sequential broaching of the humerus up to a size 13 broach was done. Off that broach a size 50 x 21 eccentric humeral head was trialed. The shoulder was then reduced, brought through a full range of motion, and felt to be stable. The shoulder was then dislocated and the broach was removed. The final size 13 micro humeral stem implant was then impacted into place. A size 50 x 21 eccentric humeral head was then impacted onto the humeral stem. The shoulder was then reduced and once again brought through a full range of motion and felt to be stable. The subscapularis was then tenodesed back to the lesser tuberosity with transosseous FiberWire sutures and side to side sutures with the arm in 45 of external rotation. 2 sutures were placed in the lateral rotator interval. A dilute betadyne lavage was then done for 3 minutes. The joint was then irrigated with normal saline solution. Hemostasis was obtained. The interval was closed with 2-0 Vicryl suture. The skin was closed with 2-0 Vicryl and henrry. A Silverlon dressing was placed and the arm was rested in a regular arm sling. He was then extubated and transferred to a hospital bed. He was taken to the postanesthesia care unit in stable condition. He tolerated the procedure well. Smita Issa PA-C, was present for the entire procedure. He was critical for patient positioning, prepping, draping, retraction exposure, wound closure and application of sterile dressing. I attest to the content of the Intraoperative Record and any orders documented therein. Any exceptions are noted below.
[2024-07-04] MEDS ORDERED: METOCLOPRAMIDE HCL INJ 5 MG/ML 2 ML VIAL IV PRN (15:26)
[2024-07-04] MEDS ORDERED: MAGNESIUM HYDROXIDE SUSP 30 ML UDC PO PRN (15:26)
[2024-07-04] MEDS ORDERED: HYDROmorphone INJ 0.5 MG/0.5 ML SYR IV PRN (15:26)
[2024-07-04] MEDS ORDERED: bisacodyL 10 MG SUPP PR PRN (15:26)
[2024-07-04] MEDS ORDERED: diphenhydrAMINE Capsule 25 MG CAP PO PRN (15:26)
[2024-07-04] MEDS ORDERED: HYDROmorphone INJ 1 MG/ML SYRINGE IV PRN (15:26)
[2024-07-04] MEDS ORDERED: oxyCODONE HCL IR 5 MG TAB (IMMEDIATE RELEASE) PO PRN (15:26)
[2024-07-04] MEDS ORDERED: NALOXONE HCL 0.4 MG/1 ML VIAL/CARP IV PRN (15:26)
--- NOTE | 2024-07-04 15:49 | Anesthesiology Progress Note ---
Date of Service July 04, 2024 Anesthesia Post Procedure Vital Signs Vital Signs: Temp Pulse Resp BP Pulse Ox O2 Del Method O2 Flow Rate 07/04/24 15:40 72 15 146/89 H 95 Oxymask 5 07/04/24 15:30 75 15 144/81 H 97 Oxymask 5 07/04/24 15:20 36.0 C L 78 17 144/86 H 97 Oxymask 5 07/04/24 11:01 36.6 C 66 20 146/90 H 94 Room Air Pain Intensity Left Shoulder: Pain Intensity: 2 Transfer of Care Handoff Completed per policy Notes Mental Status: alert / awake / arousable Patient Amnestic to Procedure: Yes Nausea / Vomiting: adequately controlled Pain: adequately controlled Airway Patency, RR, SpO2: stable & adequate BP & HR: stable & adequate Hydration State: stable & adequate Anesthetic Complications: no major complications apparent
--- NOTE | 2024-07-04 16:19 | XRay Report ---
XR shoulder LT min 2V routine HISTORY: 78 years-old Male Post shoulder surgery left shoulder arthroplasty COMPARISON: CT 05/21/2024 TECHNIQUE: 3 views of the left shoulder FINDINGS: Satisfactory alignment of the left shoulder arthroplasty with overlying skin henrry. Expected postop erative soft tissue swelling with deep tissue air. IMPRESSION: Left shoulder arthroplasty with expected postoperative changes. ACT 112: Negative or not required by law. The above report was generated using voice recognition software. It may contain grammatical, syntax o r spelling errors. Electronically signed by: Isidro Turner M.D. 07/04/2024 4:17 PM
[2024-07-04] MEDS: SODIUM CHLORIDE 0.9% 1,000 ML IV SCH (17:26)
[2024-07-04] MEDS: KETOROLAC TROMETHAMINE 15 MG/ML VIAL IV SCH (18:15)
[2024-07-04] MEDS ORDERED: NON-FORMULARY MEDICATION (Vit C,E-Zn-Coppr-Lutein-Zeaxan [Preservision Areds-2] 250-90-40- PO SCH (21:00)
[2024-07-04] MEDS: DOCUSATE SODIUM 100 MG CAP PO SCH (21:12)
[2024-07-04] MEDS: METOPROLOL TARTRATE 50 MG TAB PO SCH (21:12)
[2024-07-04] MEDS: SENNA 8.6 MG TAB PO SCH (21:12)
[2024-07-05] MEDS: ACETAMINOPHEN 1,000 MG/100 ML VIAL IV PRN (02:56)
--- NOTE | 2024-07-05 06:56 | Orthopedic Progress Note ---
Date of Service July 05, 2024 Assessment & Plan (1) Status post replacement of left shoulder joint: Overall he is doing very well. Is not having much pain in the left shoulder. He will be seen by physical therapy today for ambulation and range of motion exercises. He can be discharged home later today. He will follow-up with orthopedics in 2 weeks. Kendall Dupree was seen and examined at bedside this morning. Overall he is doing very well. He is not having much pain in the left shoulder. He has been up and ambulating. He has no complaints.. Review of Systems All systems reviewed & are unremarkable except as noted in HPI & below. Physical Exam On physical exam of the left shoulder, the dressing is clean and dry. He is wearing his sling as instructed. He has motion of his hand and his wrist.. Results & Data Results & Data Laboratory Results . Diagnostic Findings Postoperative x-rays of the left shoulder show the prosthesis to be in anatomic alignment without any evidence of fracture complication, or loosening.. PG Care Time/CCT Total # of Minutes Spent Total Time Spent with Patient: Total time spent is greater than 50% in coordination of care (as documented) at patient's floor/unit and/or counseling patient: Coding Level of Care Code 38565 Post Operative Follow-Up Diagnoses Status post replacement of left shoulder joint Z96.612
--- NOTE | 2024-07-05 06:57 | Discharge Summary ---
Date of Service July 05, 2024 Admission HPI (Per Admitting) Joon is a pleasant 78-year-old male who has been dealing with chronic increasing left shoulder pain. X-rays and clinical examination have been diagnostic for advanced arthritis of the left shoulder. After failing conservative treatment, he has elected proceed with a left total shoulder arthroplasty. Admission Exam (Per Admitting) On physical examination of the left shoulder, he has decreased range of motion. He has pain over the glenohumeral joint line. He has 5 out of 5 muscle strength throughout.. Principal Diagnosis Same as "Discharge Diagnosis" noted below under Discharge Instructions. Discharge Exam On physical exam of the left shoulder, the dressing is clean and dry. He is we aring his sling as instructed. He has motion of his hand and his wrist.. Discharge Data Procedures Performed Operation Date: 07/04/24 13:00 Actual Procedures p Left Anatomic Total Shoulder Arthroplasty, Cemented(Left) - Bong Aponte DO Ordered Studies 07/04/24 05:00 US - OR guided needle placemen Routine Hospital Course (1) Status post replacement of left shoulder joint: On July 04, 2024 Joon arrived at [facility] and underwent a left shoulder replacement without complication. He had a general anesthetic and a left interscalene nerve block. Postoperatively he was placed in a sling and transferred to the general orthopedic floors. His hospital course was uneventful. On postop day #1, his vital signs were stable and his pain was w ell-controlled. He was able to participate well with physical therapy doing ambulation and range of motion exercises. He was then discharged to home. He will follow-up orthopedics in 2 weeks. PG Care Time/CCT Total # of Minutes Spent Total Time Spent with Patient: Total time spent is greater than 50% in coordination of care (as documented) at patient's floor/unit and/or counseling patient: Discharge Plan Discharge Items Patient Disposition: Home - Self-Care Reason For Visit: Degenerative Joint Disease Left Shoulder Discharge Diagnosis: Left shoulder replacement Activity: Per Instructions section Non-emergency contact: Surgeon Call non-emergency contact if: your wound has increased redness and your wound has increased drainage Follow-up/Referrals: Deven Gibbs JR, M.D [Primary Care Provider] - Diet: Regular Addtl Attending Provider Instructions: Activity and Therapy Recommendations: * If you are using [facility] then therapy will be provided at your home until they feel you have accomplished all of your goals. * If you are using [facility] then Physical Therapy will be provided until they feel you are ready to start Outpatient Physical Therapy. * If you are not using home therapy then Outpatient Physical Therapy should start about 3-5 days from your day of surgery. Therapy will last about 8-12 weeks * Wear your sling for 3 weeks, unless otherwise instructed. You may remove your sling to shower and to dress, but otherwise, you should be in your sling at all times, including while sleeping * The shoulder replacement is very stable and you can use your hand while in the sling * You were shown a series of exercises in the hospital. Do these exercises daily including the exercises you were shown in physical therapy. Medications: * Narcotic You will likely be sent home from the hospital with a prescription for the narcotic pain medication that worked best throughout your stay. * Cefadroxil -take the antibiotic twice a day for 10 days to help prevent infection. * Other medications may be prescribed for specific circumstances. If you have any questions, please call the office at . * Resume previous home medications unless otherwise instructed Dressing Care: Leave the Silverlon dressing in place for 7 days. After 7 days you may remove the dressing. If the incision is not draining then you may leave the henrry open to air. If there is a little bit of drainage or if the henrry are getting stuck on your clothing then cover the incision with a dry dressing. The henrry will be removed at your 2 week follow-up appointment. Showering: You may shower with the Silverlon dressing in place. Do not let the shower spray hit the dressing directly. Pat the Silverlon dressing dry. If the dressing becomes wet underneath, then simply remove the dressing. Keep the incision dry until you are 7 days out from the day of surgery. After 7 days you may remove the Silverlon dressing and shower with the henrry exposed. Let soapy water run over the henrry and pat them dry. Do not scrub or soak the incision. Things To Watch For: * Drainage from the incision site that occurs more than one week after your surgery. * Increased redness at the incision site. * Fever above 102 degrees Fahrenheit. * Unusual chest pain or shortness of breath. * Call [facility] at with any of the above problems Follow-Up Visit: Follow-up with Dr. Aponte's PA (Bong Diaz) 2-3 weeks after your day of surgery. He will remove your henrry and answer any questions. If you have any additional questions or concerns, Dr Aponte is usually in the office at the same time and will be available An appointment was probably scheduled when you signed-up for surgery in the office. If you have any questions call More detailed instructions as well as Frequently Asked Questions were provided in a folder by our office when you signed-up for surgery. Please review these instructions when you get home. If you have any further questions or concerns, please feel free to call the office at [phone] Pending Studies at Discharge: No Stand-Alone Forms: My [facility] Medications and DC Order Prescriptions: New cefadroxil 500 mg capsule 500 mg PO BID 10 Days Qty: 20 0RF Continued (DME) Wheeled Walker Misc See Rx Instructions .MEDSUPPLY Qty: 1 0RF Rx Instructions: As directed (DME) Wheeled Walker Misc See Rx Instructions .MEDSUPPLY Qty: 1 0RF Rx Instructions: As directed metoprolol tartrate 50 mg tablet 50 mg PO BID atorvastatin 40 mg tablet 40 mg PO QAM lisinopril 40 mg tablet 40 mg PO QAM furosemide 20 mg tablet 20 mg PO Q2D hydrochlorothiazide 25 mg tablet 25 mg PO QAM Centrum 18-400 mg-mcg Tablet 1 tab PO QAM Osteo Bi-Flex Triple Strength 750 mg-644 mg- 30 mg-1 mg Tablet 1 tab PO QAM PreserVision AREDS-2 250-90-40-1 mg Capsule 1 tab PO BID acetaminophen 325 mg Tablet 650 mg PO QID PRN (Reason: Pain) pyridoxine (vitamin B6) [Vitamin B-6] 25 mg Tablet 25 mg PO DAILY vitamin B complex Tablet 1 tab PO DAILY cholecalciferol (vitamin D3) [Vitamin D3] 25 mcg (1,000 unit) Tablet,Chewable 25 mcg PO DAILY aspirin [Adult Low Dose Aspirin] 81 mg tablet,delayed release (DR/EC) 81 mg PO 1XD Patient Comments: only been taking 1 per day Discharge Orders: Discharge Order (Routine); Ordered 07/05/24 Ordered By: Bong Aponte Admission Data Admit Date/Time: 07/04/24 15:26 Attending Provider: Bong Aponte Admit Provider: Bong Aponte Primary Care Provider: Deven Gibbs
[2024-07-05 07:41] VITALS: BP 157/83; PULSE 82; RESP 18; TEMP 97.7; O2SAT 95
[2024-07-05] MEDS: ASPIRIN 81 MG ECTAB PO SCH (08:52)
[2024-07-05] MEDS: dexAMETHasone 4 MG TAB PO SCH (08:52)
[2024-07-05] MEDS: ATORVASTATIN 40 MG TAB PO SCH (08:52)
[2024-07-05] MEDS: FUROSEMIDE 20 MG TAB PO SCH (08:52)
[2024-07-05] MEDS: CHOLECALCIFEROL 25 MCG (1000 UNITS) TAB PO SCH (08:52)
[2024-07-05] MEDS: GLUCOSAMINE SULFATE 500 MG CAP PO SCH (08:53)
[2024-07-05] MEDS: VITAMIN B COMPLEX TAB PO SCH (08:53)
[2024-07-05] MEDS: hydroCHLOROthiazide 25 MG TAB PO SCH (08:53)
[2024-07-05] MEDS: MULTIVITAMIN TAB PO SCH (08:53)
[2024-07-05] MEDS: lisinopril 40 MG TAB PO SCH (08:53)
[2024-07-05] MEDS ORDERED: PYRIDOXINE HCL 50 MG TAB PO SCH (09:00)
[2024-07-05] MEDS ORDERED: MULTIVITAMIN IRON FOLIC ACID PO SCH (09:00)
== END 2024-07-05 10:13 | disposition home or self-care (01) ==
LOC: 3E 10:32 → ASU 10:32